=== PATIENT | female | born 1960 | race African-American/Black ===

== ENCOUNTER → 2017-05-17 | Outpatient (CLI) | payer OTHER ==
[~2017-05-17] MED LIST: ANT25 PO; TRAZ50TA35 PO; VALA500T60 PO
--- NOTE | 2017-05-17 18:15 | DIAGNOSTIC IMAGING REPORT ---
LEFT LOWER EXTREMITY VENOUS DOPPLER HISTORY: PAIN OF LEFT LOWER LEG COMPARISON STUDY: None. FINDINGS: There is normal compressibility, flow, and augmentation within the left lower extremity deep venous system. IMPRESSION: No DVT within the left lower extremity. Electronically signed by: Kevon Valenzuela M.D. 05/17/2017 6:14 PM Dictated Date/Time: 05/17/2017 6:14 PM
== END | disposition home or self-care (01) ==
LOC: C.ULTR 16:34
PROVIDERS: ATTEND Family Medicine
DX: M79.662 Pain in left lower leg (principal)

== ENCOUNTER 2024-02-10 15:44 | Observation (INO) ==
--- NOTE | 2024-02-10 15:51 | ED Triage Note ---
Date of Service February 10, 2024 Provider in Triage Author: Susan Castellanos History of Present Illness This patient was briefly evaluated while in triage. An abbreviated physical exam was performed. This patient is a 63-year-old Female who presents to the ED for evaluation "weakness in right head/eye" tingling traveled down right arm started around 1200 today had a episode of similar symptoms 7-10 days ago-resolved after a few minutes sent by doctors office for possible stroke Physical Exam GENERAL: NAD, ambulatory into triage independently CARDIOVASCULAR: RRR RESPIRATORY: CTA NEURO: speech clear, no facial droop, CV VII intact, no drift, moving all extremities Initial orders for labs and / or imaging were placed and patient was placed in the waiting area until a bed is available. Please see further documentation for the full ED course.
[2024-02-10 16:34] LABS: Basophils # (auto) 0.06 K/uL (0.00-0.20); Basophils % (auto) 0.7 %; Eosinophils # (auto) 0.28 K/uL (0.00-0.50); Eosinophils % (auto) 3.1 %; Hematocrit (blood only) 37.3 % (37.0-47.0); Hemoglobin 12.4 g/dl (12.0-16.0); Immature Granulocytes # (auto) 0.02 K/uL (0.01-0.20); Immature Granulocytes % (auto) 0.2 %; Lymphocytes # (auto) 2.64 K/uL (1.20-3.40); Lymphocytes % (auto) 29.6 %; Mean Corpuscular Hemoglobin 29.8 pg (25.0-34.0); Mean Corpuscular Hgb Conc 33.2 g/dL (32.0-36.0); Mean Corpuscular Volume 89.7 fL (80.0-100.0); Mean Platelet Volume 11.9 fL (9.4-12.4); Monocytes # (auto) 0.76 K/uL (0.11-0.59); Monocytes % (auto) 8.5 %; Neutrophils # (auto) 5.15 K/uL (1.40-6.50); Neutrophils % (auto) 57.9 %; Platelet Count 328 K/uL (130-400); RDW Coefficient of Variation 13.6 % (11.5-14.5); RDW Standard Deviation 44.6 fL (36.4-46.3); Red Blood Count 4.16 M/uL (4.20-5.40); White Blood Count 8.91 K/ul (4.8-10.8)
[2024-02-10] MEDS: OPTIRAY 320 125ml IV ONE (16:37)
[2024-02-10 16:40] LABS: iSTAT Hemoglobin 13.3 g/dl (12.0-16.0); iSTAT Ionized Calcium 1.25 mmol/l (1.12-1.32)
[2024-02-10 16:50] LABS: Albumin Globulin Ratio 1.5 (0.9-2); Albumin Level 4.3 gm/dl (3.4-5.0); BUN Creatinine Ratio 21.9 (10-20); Bilirubin,Total 0.4 mg/dl (0.2-1.0); Calcium 9.2 mg/dl (8.6-10.3); Creatinine Clr Calc Pharmacy 68.9 ml/min; Est GFR (African American) 73.5 ml/min; Est GFR (Non-African American) 63.4 ml/min; Globulin 2.8 gm/dl (2.5-4.0); Magnesium 1.8 mg/dl (1.7-2.4); Total Protein 7.1 gm/dl (6.0-8.3)
[2024-02-10 16:57] LABS: Troponin I High Sensitivity 2.4 pg/ml (0-14)
[2024-02-10 16:58] LABS: INR 0.9 (0.9-1.1); Partial Thromboplastin Ratio 0.9; Partial Thromboplastin Time 24 Seconds (21-31); Prothrombin Time 9.8 Seconds (9.0-12.0)
[2024-02-10 17:06] LABS: Thyroid Stimulating Hormone 0.636 uIu/ml (0.300-4.500)
--- NOTE | 2024-02-10 17:24 | CT Scan Report ---
HEAD CT NONCONTRAST CT DOSE: HISTORY: neuro deficit, acute stroke suspected TECHNIQUE: Multiaxial CT images of the head were performed without the use of intravenous contrast. A utomated exposure control was utilized for this study. A dose lowering technique was utilized adheri ng to the principles of ALARA. Comparison: Head CT 06/18/2022. Findings: The paranasal sinuses and mastoid air cells are clear. The calvarium and skull base are int act. The ventricles and sulci are within normal limits. There is no mass, hematoma, midline shift, or acute infarct. Impression: No acute intracranial abnormality. ACT 112: Negative or not required by law. Electronically signed by: Kevon Valenzuela M.D. 02/10/2024 5:23 PM
--- NOTE | 2024-02-10 17:26 | CT Scan Report ---
NECK CTA HISTORY: neuro deficit, acute stroke suspected TECHNIQUE: Multiaxial CT images of the neck were performed following the intravenous administration o f contrast to evaluate the major cervical vessels. 3D/MIP images were also obtained. Sagittal and cor onal reformats were reviewed. All measurements were calculated based on NASCET criteria. A dose low ering technique was utilized adhering to the principles of ALARA. COMPARISON STUDY: CTA neck 06/18/2022. FINDINGS: The aortic arch and proximal great vessels are widely patent. There is no significant sten osis, occlusion, or dissection identified within the bilateral common carotid, internal carotid, or v ertebral arteries. IMPRESSION: No significant stenosis, occlusion, or dissection identified within the carotid or vertebral arteries . ACT 112: Negative or not required by law. Electronically signed by: Kevon Valenzuela M.D. 02/10/2024 5:25 PM
--- NOTE | 2024-02-10 17:27 | CT Scan Report ---
CT angio head w con CLINICAL HISTORY: neuro deficit, acute stroke suspected TECHNIQUE: Contiguous axial CT images of the head were acquired from the base of the skull to the bronson adeline without intravenous contrast administration. CT angiography of the head and neck was performed f ollowing intravenous administration of iodinated contrast. Coronal and sagittal MIPS were obtained fr om the axial data set and were submitted for review. Automated dose lowering techniques and/or adjus tment according to patient size were utilized for this examination. All measurements were calculated based on NASCET criteria. Comparison: None available at the time of this dictation. FINDINGS: CTA Head: The anterior and posterior cerebral circulations are patent. No hemodynamically significan t stenosis, aneurysm, dissection, or arteriovenous malformation is shown. IMPRESSION: No occlusion, hemodynamically significant stenosis, aneurysm, dissection, or arteriovenous malformati on in the major intracranial arteries. Assessment of stenosis of the internal carotid arteries is based on NASCET criteria. ACT 112: Negative or not required by law. Electronically signed by: James Horne M.D. 02/10/2024 5:26 PM
--- NOTE | 2024-02-10 18:29 | Emergency Department Note ---
Impression & Plan Stroke-like symptoms, Numbness and tingling of right face, Numbness and tingling of right arm ED Provider Note HISTORY OF PRESENT ILLNESS: Patient is a 63-year-old female presenting with right sided numbness and tingling. Patient reports that around 1230 today she developed a "weakness in my right upper forehead." She states that she then had a [id number] numbness and tingling sensation down the right side of her face, and then down her right arm into her hand. She called her primary care provider's office, who recommended she present to the emergency department. Patient denies any recent head injury or chiropractic manipulation of her neck. Denies any changes in her vision. She reports "I just felt like my forehead was very weak and I had difficulties keeping my eye open." Denies any slurred speech. She states that she is still having symptoms on my assessment in 1820, but reports that they have significantly improved. She denies any anticoagulation or antiplatelet use. Denies any chest pain or shortness of breath. Denies any recent fevers. Denies any headache. ROS: as above PHYSICAL EXAM: Constitutional: Patient appears in no acute distress. HENT: Head: Normocephalic and atraumatic. Eyes: EOMI, PERRL Mouth/Throat: Mucous membranes moist. Neck: Trachea midline. Neck supple. Cardiovascular: RRR, No murmurs, rubs or gallops. Intact distal pulses. Pulmonary/Chest: No respiratory distress. Breath sounds clear and equal bilaterally. No wheezes or rales. Abdominal: Abdomen soft, no tenderness, rebound or guarding. Musculoskeletal: No edema, tenderness or deformity noted. Skin: Warm and dry. No rash, erythema, pallor or cyanosis Psychiatric: Appropriate mood and affect for situation. Neurological: Alert and keenly responsive. Facies symmetric. Able to raise eyebrows, close eyes, smile, puff mouth, stick out tongue, move tongue left and right and raise palate symmetrically. Able to shrug shoulders. PERRLA. SILT to forehead below eye and at jawline. Can hear soft noise bilaterally. Strength 5/5 in bilateral upper and lower extremities. SILT throughout bilateral upper and lower extremities. MDM: - Vitals signs showed hypertension - History obtained via patient. History as above. - Chronic conditions affecting care: Prediabetes; angioedema; HLD - Differential diagnoses include, but are not limited to: TIA; CVA; intracranial hemorrhage; electrolyte abnormality; ACS; dysrhythmia - Order placed for continuous cardiac monitoring. At this time, monitor showed rate of 68 bpm with normal sinus rhythm, per my interpretation. - External medical records reviewed. Wellness visit note on 12/26/2023 was reviewed. Patient was seen in the clinic for health maintenance examination. - EKG interpreted by myself showed normal sinus rhythm. Rate 69 bpm. QT 392. No acute ischemic changes. - Laboratory workup interpreted by myself showed normal WBC; normal PT/INR; stable electrolytes; normal troponin; normal TSH - UA negative for infection - CT head wo contrast negative for acute pathology - CTA head/neck negative for acute pathology - Unclear etiology for patient's symptoms at this time, as she is denying any headache to make ocular migraine appendageal etiology for her symptoms. However, she is still complaining of some subjective numbness symptoms to her face and arm, so will admit for further strokelike symptoms workup. - Discussion was had with case coordinator about patient's case and need for admission - Hospitalist consulted for admission - Patient admitted to [facility] for further evaluation and management. ASSESSMENT AND PLAN: Diagnosis: Strokelike symptoms; right facial numbness; right arm numbness Plan: admit Past Med/Surg History Problem List (Updated 02/10/24 @ 20:04 by Susan Castellanos MD) Numbness and tingling of right arm (Acute) Numbness and tingling of right face (Acute) Stroke-like symptoms (Acute) Internal derangement of knee Stress incontinence Hyperlipidemia Renal insufficiency Angioedema Dermatitis Carpal tunnel syndrome of right wrist Medial meniscus, posterior horn derangement Urinary urgency Recurrent urinary tract infection Bakers cyst Knee pain Greater trochanteric pain syndrome Chronic venous insufficiency Lumbar radiculopathy, acute Metabolic syndrome Iliotibial band syndrome affecting left lower leg Dietary counseling and surveillance Abnormal weight gain Obesity (Chronic) Ovidio's disease (Chronic) Prediabetes (Chronic) Lipodermatosclerosis Hypothyroid (Chronic) Herpes genitalia (Chronic) Medical History Encounter for screening for malignant neoplasm of skin History of vaginal delivery Panniculitis Rash and nonspecific skin eruption Surgical History No pertinent past surgical history Family History Mother Coronary heart disease, Onset Age: 56 Myocardial infarction Hypothyroidism ESCALONA (nonalcoholic steatohepatitis) Father Macular degeneration Hypothyroidism Circulation disorder of lower extremity Brother Depression Diabetes Sister Depression Hypothyroidism Daughter No problems noted. 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 How many Children do You have: 1 Feels Safe at Home: Yes Childhood Exposure to Second-Hand Smoke: No Diet: regular Diet Comment: vegetarian sometimes trying to get back to it caffeine: Yes during the past year weight has: remained stable Dental Care, Regularly: Yes Physical Activity Frequency: Daily Seatbelt Use: always Sunscreen Use: Yes Assistive Devices: Glasses Allergies Allergies Allergy/AdvReac Type Severity Reaction Status Date / Time sulfamethoxazole Allergy Verified 01/23/24 14:33 [From Bactrim] trimethoprim [From Bactrim] Allergy Verified 01/23/24 14:33 Home Meds Home Medications Medication Instructions Recorded Confirmed clobetasol 0.05 % topical cream 0 appln topical BID PRN Unknown 03/11/19 02/10/24 pentoxifylline 400 mg 0 mg PO TID PRN Unknown 03/06/21 02/10/24 tablet,extended release meclizine 25 mg tablet 0 mg PO TID PRN dizziness 02/10/24 02/10/24 meloxicam 7.5 mg tablet 0 mg PO DAILY PRN pain 02/10/24 02/10/24 metformin 500 mg tablet,extended 0 mg PO DAILY 02/10/24 02/10/24 release 24 hr ondansetron 4 mg disintegrating 0 mg PO Q8H PRN nausea and vomiting 02/10/24 02/10/24 tablet scopolamine base 1 mg over 3 days 0 patch transdermal Q3D PRN nausea 02/10/24 02/10/24 transdermal patch and vomiting Previous Rx's Medication Instructions Recorded valacyclovir 500 mg tablet 500 mg PO DAILY PRN herpes #90 tabs 09/24/23 levothyroxine 112 mcg tablet 112 mcg PO DAILY 90 days #90 tabs 11/28/23 pravastatin 10 mg tablet 10 mg PO DAILY #90 tabs 11/28/23 Results & Data (ED) Vital Signs Vital Signs - 24 hr 02/10/24 15:48 02/10/24 17:44 02/10/24 18:42 Temperature 36.6 C Temperature Source Temporal Artery Scan Pulse Rate 77 73 Pulse Rate [Finger] 68 Respiratory Rate 18 16 Respiratory Effort / Characteristics Non-Labored Spontaneous Respiratory Depth Normal Respiratory Pattern Regular Blood Pressure 143/71 H Blood Pressure [Left Arm] 125/65 Blood Pressure Mean 95 Blood Pressure Mean [Left Arm] 85 Pulse Oximetry 96 100 Oxygen Delivery Method Room Air Room Air Sepsis Recent Fever Within 48 Hours No Sepsis New/Unexplained Change in Mental Status N/A Sepsis Action Taken by Nursing No Action Required Laboratory Data 02/10/24 16:16 02/10/24 16:16 Lab Results 02/10/24 02/10/24 02/10/24 Range/Units 16:16 16:23 18:45 WBC 8.91 (4.8-10.8) K/ul RBC 4.16 L (4.20-5.40) M/uL Hgb 12.4 (12.0-16.0) g/dl POC Hgb 13.3 (12.0-16.0) g/dl Hct 37.3 (37.0-47.0) % POC Hct 39 (37-47) % MCV 89.7 (80.0-100.0) fL MCH 29.8 (25.0-34.0) pg MCHC 33.2 (32.0-36.0) g/dL RDW Std Deviation 44.6 (36.4-46.3) fL RDW Coeff of Zohaib 13.6 (11.5-14.5) % Plt Count 328 (130-400) K/uL MPV 11.9 (9.4-12.4) fL Immature Gran % (Auto) 0.2 % Neut % (Auto) 57.9 % Lymph % (Auto) 29.6 % Ballard % (Auto) 8.5 % Eos % (Auto) 3.1 % Baso % (Auto) 0.7 % Neut # (Auto) 5.15 (1.40-6.50) K/uL Lymph # (Auto) 2.64 (1.20-3.40) K/uL Ballard # (Auto) 0.76 H (0.11-0.59) K/uL Eos # (Auto) 0.28 (0.00-0.50) K/uL Baso # (Auto) 0.06 (0.00-0.20) K/uL Immature Gran # (Auto) 0.02 (0.01-0.20) K/uL PT 9.8 (9.0-12.0) Seconds INR 0.9 (0.9-1.1) APTT 24 (21-31) Seconds PTT Ratio 0.9 POC Sodium 140 (135-144) mmol/L Sodium 140 (136-145) mmol/L POC Potassium 4.0 (3.3-5.0) mmol/L Potassium 4.0 (3.5-5.1) mmol/L POC Chloride 107 (101-112) mmol/L Chloride 106 (98-107) mmol/L Carbon Dioxide 26 (21-32) mmol/L POC Total CO2 25 (24-31) mmol/L Anion Gap 8 (3-11) POC Anion Gap 14.0 L (16-25) mmol/L POC BUN 21 H (7-18) mg/dl BUN 21 (6-23) mg/dl Creatinine 0.96 (0.6-1.2) mg/dl POC Creatinine 1.0 (0.6-1.3) mg/dl Est Cr Clr Drug Dosing 68.9 ml/min Est GFR ( Amer) 73.5 ml/min Est GFR (Non-Af Amer) 63.4 ml/min BUN/Creatinine Ratio 21.9 H (10-20) Glucose 101 H (70-99(Fasting)) mg/dl POC Glucose (other) 105 H (70-99) mg/dl Calcium 9.2 (8.6-10.3) mg/dl POC Ioniz Calcium Noé 1.25 (1.12-1.32) mmol/l Magnesium 1.8 (1.7-2.4) mg/dl Total Bilirubin 0.4 (0.2-1.0) mg/dl AST 15 (13-39) U/L ALT 16 (7-52) U/L Alkaline Phosphatase 82 (34-104) U/L Troponin I High Sens 2.4 (0-14) pg/ml Total Protein 7.1 (6.0-8.3) gm/dl Albumin 4.3 (3.4-5.0) gm/dl Globulin 2.8 (2.5-4.0) gm/dl Albumin/Globulin Ratio 1.5 (0.9-2) TSH 0.636 (0.300-4.500) uIu/ml Urine Color Yellow Urine Appearance Clear (Clear) Urine pH 5.5 (4.5-7.5) Ur Specific Harman > 1.045 H (1.000-1.030) Urine Protein Negative (Negative) Urine Glucose (UA) Negative (Negative) Urine Ketones Negative (Negative) Urine Blood Negative (Negative) Urine Nitrite Negative (Negative) Urine Bilirubin Negative (Negative) Urine Urobilinogen Negative (Negative) Ur Leukocyte Esterase Negative (Negative) Administered Medications Discontinued Medications Ioversol (Optiray 320 125ml) 120 ml IV ONCE ONE Stop: 02/10/24 16:38 Last Admin: 02/10/24 16:37 Dose: 120 ml Documented By: JOSE Imaging Data Radiologist's Impression: Head CT 02/10/24 15:[address] DOSE: HISTORY: neuro deficit, acute stroke suspected TECHNIQUE: Multiaxial CT images of the head were performed without the use of intravenous contrast. Automated exposure control was utilized for this study. A dose lowering technique was utilized adhering to the principles of ALARA. Comparison: Head CT 06/18/2022. Findings: The paranasal sinuses and mastoid air cells are clear. The calvarium and skull base are intact. The ventricles and sulci are within normal limits. There is no mass, hematoma, midline shift, or acute infarct. Impression: No acute intracranial abnormality. ACT 112: Negative or not required by law. Electronically signed by: Kevon Valenzuela M.D. 02/10/2024 5:23 PM Head CTA 02/10/24 15:51 CT angio head w con CLINICAL HISTORY: neuro deficit, acute stroke suspected TECHNIQUE: Contiguous axial CT images of the head were acquired from the base of the skull to the vertex without intravenous contrast administration. CT angiography of the head and neck was performed following intravenous administration of iodinated contrast. Coronal and sagittal MIPS were obtained from the axial data set and were submitted for review. Automated dose lowering techniques and/or adjustment according to patient size were utilized for this examination. All measurements were calculated based on NASCET criteria. Comparison: None available at the time of this dictation. FINDINGS: CTA Head: The anterior and posterior cerebral circulations are patent. No hemodynamically significant stenosis, aneurysm, dissection, or arteriovenous malformation is shown. IMPRESSION: No occlusion, hemodynamically significant stenosis, aneurysm, dissection, or arteriovenous malformation in the major intracranial arteries. Assessment of stenosis of the internal carotid arteries is based on NASCET criteria. ACT 112: Negative or not required by law. Electronically signed by: James Horne M.D. 02/10/2024 5:26 PM Neck CTA 02/10/24 15:51 NECK CTA HISTORY: neuro deficit, acute stroke suspected TECHNIQUE: Multiaxial CT images of the neck were performed following the intravenous administration of contrast to evaluate the major cervical vessels. 3D/MIP images were also obtained. Sagittal and coronal reformats were reviewed. All measurements were calculated based on NASCET criteria. A dose lowering technique was utilized adhering to the principles of ALARA. COMPARISON STUDY: CTA neck 06/18/2022. FINDINGS: The aortic arch and proximal great vessels are widely patent. There is no significant stenosis, occlusion, or dissection identified within the bilateral common carotid, internal carotid, or vertebral arteries. IMPRESSION: No significant stenosis, occlusion, or dissection identified within the carotid or vertebral arteries. ACT 112: Negative or not required by law. Electronically signed by: Kevon Valenzuela M.D. 02/10/2024 5:25 PM Discharge Plan Visit Data Chief Complaint: Neuro Symptoms/Deficit Stated Complaint: TIA SYMPTOMS, NUMB, HEADACHE ED Provider: Susan Castellanos Discharge Problem: Stroke-like symptoms, Numbness and tingling of right face, Numbness and tingling of right arm Forms Stand Alone Forms: [employer]itive Prescriptions Prescriptions: No Action valacyclovir 500 mg tablet 500 mg PO DAILY PRN (Reason: herpes) Qty: 90 1RF clobetasol 0.05 % cream 0 appln topical BID PRN (Reason: Unknown) Rx Instructions: Unable to verify w/ patient/pharmacy at this date/time. Original Directions: 1 application twice daily PRN pentoxifylline 400 mg tablet extended release 0 mg PO TID PRN (Reason: Unknown) Rx Instructions: Unable to verify w/ patient/pharmacy at this date/time. Original Directions: 400mg by mouth TID pravastatin 10 mg tablet 10 mg PO DAILY Qty: 90 1RF levothyroxine 112 mcg tablet 112 mcg PO DAILY 90 Days Qty: 90 1RF Rx Instructions: Take 1st thing in AM on empty stomach with water 30 min prior to any other oral intake. meloxicam 7.5 mg tablet 0 mg PO DAILY PRN (Reason: pain) Rx Instructions: Unable to verify w/ patient/pharmacy at this date/time. Original Directions:7.5mg by mouth daily PRN meclizine 25 mg tablet 0 mg PO TID PRN (Reason: dizziness) Rx Instructions: Unable to verify w/ patient/pharmacy at this date/time. Original Directions:25mg by mouth TID PRN scopolamine base 1 mg over 3 days patch 3 day 0 patch transdermal Q3D PRN (Reason: nausea and vomiting) Rx Instructions: Unable to verify w/ patient/pharmacy at this date/time. Original Directions: 1 patch transdermal q3D PRN ondansetron 4 mg tablet,disintegrating 0 mg PO Q8H PRN (Reason: nausea and vomiting) Rx Instructions: Unable to verify w/ patient/pharmacy at this date/time. Original Directions: 4mg by mouth q8h PRN metformin 500 mg tablet extended release 24 hr 0 mg PO DAILY Rx Instructions: Unable to verify w/ patient/pharmacy at this date/time. Original Directions: 500mg by mouth daily Referrals Referrals: Anastasia Ye MD [Primary Care Provider] -
[2024-02-10 18:56] LABS: Appearance Urine Clear (Clear); Bilirubin Urine Negative (Negative); Blood Urine Negative (Negative); Color Urine Yellow; Glucose Urine UA Negative (Negative); Ketones Urine Negative (Negative); Leukocyte Esterase Urine Negative (Negative); Nitrite Urine Negative (Negative); Protein Urine Negative (Negative); Specific Gravity Urine > 1.045 (1.000-1.030); Urobilinogen Urine Negative (Negative); pH Urine 5.5 (4.5-7.5)
--- NOTE | 2024-02-10 20:07 | History & Physical Report ---
Date of Service February 10, 2024 Assessment & Plan (1) Stroke-like symptoms: Plan: Acute onset of right-sided facial weakness and right arm tingling around 1200 on 02/09 No facial droop or slurred speech; patient reports difficulty assessing unilateral deficits due to a recent right knee injury Note: She is currently completing a steroid taper for her knee which she started on 01/21 Head/neck imaging on arrival without acute findings Brain MRI ordered, pending Echocardiogram with bubble study ordered for the morning of 02/10 Patient passed dysphagia screen in the ED, okay to eat Aspirin 324 mg p.o. given in the ED DDx at this time includes TIA, CVA, ocular migraine, unilateral sinus pressure/infection, and barotrauma (among other etiologies) Aspirin 81 mg p.o. daily A.m. CBC, BMP, fasting lipid panel, A1c (2) Diabetes: Plan: Last A1c 6.1% on 11/28/2023; prediabetic Glucose 101 on arrival Hold metformin Will defer insulin at this time; diet controlled BSG ACHS Follow a.m. A1c (3) Hypothyroid: Plan: Continue Synthroid Plan Disposition: Obs - Admit to PCU telemetry Full code T2DM diet VTE PPx: SCDs; hold chemical DVT PPx until brain MRI comes back History of Present Illness Chief Complaint: Neuro symptoms/deficits Primary Care Provider: [facility]astasia Ye [facility] 63-year-[facility] female with PMH of hypothyroidism, metabolic syndrome, Ovidio's, stress incontinence, and HLD. She presented on 02/09 for acute onset of right upper quadrant facial pressure and weakness. She notes that the pressure feels like a "brain freeze" and it is around her right eye, cheek, and forehead. No blurry vision, photophobia, or loss of vision. She thinks it could be related to her sinuses. She did go for a long hike on Friday, and while there was not significant elevation changes, she went for a hike the preceding Friday with higher elevation changes. She had 1 episode of similar symptoms 7 to 10 days ago that resolved after 5 minutes. Patient took all her regular morning medications today except for her metformin. She had a brief stomach illness (abdominal cramping, and N/V/D) last Friday and thought it could be a GI reaction to the metformin, which she has stopped taking for a couple days. Additionally, she is currently completing a oral prednisone taper for her right knee, which she has been on for the past 2 to 3 weeks. She had a knee injury during an exercise class II months ago, and has had intermittent weakness in her right knee ever since. Today, she denies any slurred speech, facial droop, or unilateral deficits (however she reports it is difficult to tell with her right knee injury). She does endorse some numbness and tingling in her right arm. While she does have a history of vertigo, she denies any lightheadedness or dizziness similar to past episodes. She also says she has a history of migraines 2-3 times per year, but she does not feel like it is similar to that; no aura or photophobia. Patient denies smoking, tobacco use, recent alcohol use. Patient reports she has a medication allergy to Bactrim; she reports she has taken aspirin in the past without any allergy problems. She reports she is still feeling eye pressure and weakness at time of admission and that her symptoms have not fully resolved. Vital stable at time admission. ED course: ROS: Patient endorses swelling/weakness around the right eyelid, unilateral sinus pressure, numbness and tingling down the right arm, and weakness in the right knee. Patient denies fever, chills, sweating, dizziness, lightheadedness, blurry vision, loss of vision, photophobia, changes in hearing, tinnitus, ear pain, facial droop, slurred speech, word finding difficulty, confusion, tick bites, rashes, chest pain, chest palpitations, pleuritic CP, SOB, cough, abdominal pain (resolved), N/V/D (resolved), or changes in urinary bowel habits. Allergies Allergy/AdvReac Type Severity Reaction Status Date / Time sulfamethoxazole Allergy Verified 01/23/24 14:33 [From Bactrim] trimethoprim [From Bactrim] Allergy Verified 01/23/24 14:33 Home Medications Medication Instructions Recorded Confirmed Type clobetasol 0.05 % topical cream 0 appln topical BID PRN Unknown 03/11/19 02/10/24 History pentoxifylline 400 mg 0 mg PO TID PRN Unknown 03/06/21 02/10/24 History tablet,extended release valacyclovir 500 mg tablet 500 mg PO DAILY PRN herpes #90 tabs 09/24/23 02/10/24 Rx levothyroxine 112 mcg tablet 112 mcg PO DAILY 90 days #90 tabs 11/28/23 02/10/24 Rx pravastatin 10 mg tablet 10 mg PO DAILY #90 tabs 11/28/23 02/10/24 Rx meclizine 25 mg tablet 0 mg PO TID PRN dizziness 02/10/24 02/10/24 History meloxicam 7.5 mg tablet 0 mg PO DAILY PRN pain 02/10/24 02/10/24 History metformin 500 mg tablet,extended 0 mg PO DAILY 02/10/24 02/10/24 History release 24 hr ondansetron 4 mg disintegrating 0 mg PO Q8H PRN nausea and vomiting 02/10/24 02/10/24 History tablet scopolamine base 1 mg over 3 days 0 patch transdermal Q3D PRN nausea 02/10/24 02/10/24 History transdermal patch and vomiting Past Med/Surg History Problem List (Updated 02/11/24 @ 09:35 by Long Brady MD) Ill-defined condition Diabetes Numbness and tingling of right arm (Acute) Numbness and tingling of right face (Acute) Stroke-like symptoms (Acute) Internal derangement of knee Stress incontinence Hyperlipidemia Renal insufficiency Angioedema Dermatitis Carpal tunnel syndrome of right wrist Medial meniscus, posterior horn derangement Urinary urgency Recurrent urinary tract infection Bakers cyst Knee pain Greater trochanteric pain syndrome Chronic venous insufficiency Lumbar radiculopathy, acute Metabolic syndrome Iliotibial band syndrome affecting left lower leg Dietary counseling and surveillance Abnormal weight gain Obesity (Chronic) Ovidio's disease (Chronic) Prediabetes (Chronic) Lipodermatosclerosis Hypothyroid (Chronic) Herpes genitalia (Chronic) Medical History Encounter for screening for malignant neoplasm of skin History of vaginal delivery Panniculitis Rash and nonspecific skin eruption Surgical History No pertinent past surgical history Family History Mother Coronary heart disease, Onset Age: 56 Myocardial infarction Hypothyroidism ESCALONA (nonalcoholic steatohepatitis) Father Macular degeneration Hypothyroidism Circulation disorder of lower extremity Brother Depression Diabetes Sister Depression Hypothyroidism Daughter No problems noted. 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 many Children do You have: 1 Feels Safe at Home: Yes Childhood Exposure to Second-Hand Smoke: No Diet: regular Diet Comment: vegetarian sometimes trying to get back to it caffeine: Yes during the past year weight has: remained stable Dental Care, Regularly: Yes Physical Activity Frequency: Daily Seatbelt Use: always Sunscreen Use: Yes Assistive Devices: None Review of Systems Review of Systems: See HPI above Physical Exam Physical Exam: General: no acute distress; pleasant affect; non-toxic appearing; cooperative; SpO2 1% on RA HEENT: normocephalic, atraumatic; no scleral icterus; PERRLA w/ EOMs intact; vision and hearing grossly intact; patient reports diminished sensation around the right eye and cheek when compared to the left via light touch; no unilateral sensation deficits in the forehead Neck: supple; no lymphadenopathy; trachea midline; patient demonstrates ability to shrug shoulders against resistance and rotate neck bilaterally without deficits Skin: warm, dry without signs of tenting; no cyanosis; no rashes, bruising, lesions, or erythema noted CV: chest wall NTP; RRR; S1/S2 normal; no murmurs/rubs/gallops; pulses intact and symmetric at radial, DP, and PT Lungs: no acute respiratory distress; symmetrical chest wall expansion; clear breath sounds across all lung wei w/o adventitious sounds; no wheezing ABD: Soft, NTP; BS present; no rebound/guarding; no distention MSK: no tics or fasciculations; no edema noted in the LEs b/l, nonerythematous; patient demonstrates ability to wiggle toes and with legs in bed supine with equal strength; 5/5 maintenance apprentice strength bilaterally Neuro: A&Ox3; normal mood and affect; fluent speech; no facial droop, no slurred speech; no focal deficits; sensation grossly intact in the upper extremities and lower extremities bilaterally; negative pronator drift Results & Data Results & Data Vital Signs (Past 12 Hours) Vital Signs Temp Pulse Pulse Resp BP BP Pulse Ox 02/10/24 18:42 68 16 125/65 100 02/10/24 17:44 73 02/10/24 15:48 36.6 C 77 18 143/71 H 96 O2 Del Method 02/10/24 18:42 Room Air 02/10/24 17:44 02/10/24 15:48 Room Air Laboratory Results Abnormal lab results 02/10/24 02/10/24 02/10/24 Range/Units 16:16 16:23 18:45 RBC 4.16 L (4.20-5.40) M/uL [facility] # (Auto) 0.76 H (0.11-0.59) K/uL POC Anion Gap 14.0 L (16-25) mmol/L POC BUN 21 H (7-18) mg/dl BUN/Creatinine Ratio 21.9 H (10-20) Glucose 101 H (70-99(Fasting)) mg/dl POC Glucose (other) 105 H (70-99) mg/dl Ur Specific [place] > 1.045 H (1.000-1.030) Diagnostic Findings Head CT 02/10/24 15:[address] DOSE: HISTORY: neuro deficit, acute stroke suspected TECHNIQUE: Multiaxial CT images of the head were performed without the use of intravenous contrast. Automated exposure control was utilized for this study. A dose lowering technique was utilized adhering to the principles of ALARA. Comparison: Head CT 06/18/2022. Findings: The paranasal sinuses and mastoid air cells are clear. The calvarium and skull base are intact. The ventricles and sulci are within normal limits. There is no mass, hematoma, midline shift, or acute infarct. Impression: No acute intracranial abnormality. ACT 112: Negative or not required by law. Electronically signed by: Kevon Valenzuela M.D. 02/10/2024 5:23 PM Head CTA 02/10/24 15:51 CT angio head w con CLINICAL HISTORY: neuro deficit, acute stroke suspected TECHNIQUE: Contiguous axial CT images of the head were acquired from the base of the skull to the vertex without intravenous contrast administration. CT angiography of the head and neck was performed following intravenous administration of iodinated contrast. Coronal and sagittal MIPS were obtained from the axial data set and were submitted for review. Automated dose lowering techniques and/or adjustment according to patient size were utilized for this examination. All measurements were calculated based on NASCET criteria. Comparison: None available at the time of this dictation. FINDINGS: CTA Head: The anterior and posterior cerebral circulations are patent. No hemodynamically significant stenosis, aneurysm, dissection, or arteriovenous malformation is shown. IMPRESSION: No occlusion, hemodynamically significant stenosis, aneurysm, dissection, or arteriovenous malformation in the major intracranial arteries. Assessment of stenosis of the internal carotid arteries is based on NASCET criteria. ACT 112: Negative or not required by law. Electronically signed by: James Horne M.D. 02/10/2024 5:26 PM Neck CTA 02/10/24 15:51 NECK CTA HISTORY: neuro deficit, acute stroke suspected TECHNIQUE: Multiaxial CT images of the neck were performed following the intravenous administration of contrast to evaluate the major cervical vessels. 3D/MIP images were also obtained. Sagittal and coronal reformats were reviewed. All measurements were calculated based on NASCET criteria. A dose lowering technique was utilized adhering to the principles of ALARA. COMPARISON STUDY: CTA neck 06/18/2022. FINDINGS: The aortic arch and proximal great vessels are widely patent. There is no significant stenosis, occlusion, or dissection identified within the bilateral common carotid, internal carotid, or vertebral arteries. IMPRESSION: No significant stenosis, occlusion, or dissection identified within the carotid or vertebral arteries. ACT 112: Negative or not required by law. Electronically signed by: Kevon Valenzuela M.D. 02/10/2024 5:25 PM ECG Additional Comments: ECG revealed normal sinus rhythm at 69 bpm; QTc 420 Code Status & VTE Plan Code Status Full code VTE Prophylaxis Plan VTE Prophylaxis will be ordered: Yes Supervising Physician Co-Signing Physician Notes Attending addendum: I have physically seen this patient, have supervised the NATHALIE's activities, and agree with the H&P unless as otherwise noted. Assessment and Plan: Strokelike symptoms- Patient notes acute onset of right-sided facial tingling and right arm tingling around noon on 02/09 No issues with facial droop, slurred speech or swallowing CT scan head without contrast negative CTA head and neck negative The patient will be admitted to telemetry for serial cardiac enzymes, serial EKG's, cardiac rhythm monitoring and a 2-D echocardiogram with Dopplers. Aspirin 324 mg given in the ED, and will continue his 81 mg daily CBC with differential, BMP, hemoglobin A1c and FLP in the a.m. Consult neurology Diabetes mellitus- Glucose 101 admission Holding metformin Placed on Accu-Cheks with NovoLog coverage Ovidio's thyroiditis/hypothyroidism- Continue levothyroxine 112 mcg daily Hyperlipidemia- On pravastatin 10 mg p.o. daily Check fasting lipid panel PG Care Time/CCT Total # of Minutes Spent Total Time Spent with Patient: Total time spent is greater than 50% in coordination of care (as documented) at patient's floor/unit and/or counseling patient: Coding [place] [address] INT INP/OBS CARE 3/75MIN Patient Type Established Medical Decision Making High Complexity Diagnoses Stroke-like symptoms R29.90 Diabetes E11.9 Acquired hypothyroidism E03.9 Hypothyroidism type: acquired (3) Hypothyroid Hypothyroidism type: acquired Qualified Code(s): E03.9 - Hypothyroidism, unspecified
[2024-02-10] MEDS: ASPIRIN CHEW 324 MG PO STA (21:19)
[2024-02-10] MEDS ORDERED: ACETAMINOPHEN 325 MG TAB PO PRN (22:31)
[2024-02-10] MEDS ORDERED: DEXTROSE 50% 50 ML SYRINGE IV PRN (22:31)
[2024-02-10] MEDS ORDERED: GLUCOSE 40% GEL 15 GM TUBE PO PRN (22:31)
[2024-02-10] MEDS ORDERED: CLOBETASOL PROPIONATE 0.05% CREAM 15 GM TUBE TOP PRN (22:31)
[2024-02-10] MEDS ORDERED: GLUCAGON FOR INJ 1 MG VIAL SQ PRN (22:31)
[2024-02-10] MEDS ORDERED: CARBOHYDRATES FOR HYPOGLYCEMIA PO PRN (22:31)
[2024-02-10] MEDS ORDERED: ONDANSETRON INJ 2 MG/ML 2 ML VIAL IV PRN (22:31)
[2024-02-10] MEDS ORDERED: MECLIZINE HCL 25 MG TAB PO PRN (22:31)
[2024-02-10] MEDS ORDERED: GLUCOSE 10 TAB/TUBE PO PRN (22:31)
--- NOTE | 2024-02-11 01:42 | Magnetic Resonance Report ---
Exam(s): MRI HEAD Without Contrast EXAM: MR Head Without Intravenous Contrast CLINICAL HISTORY: Reason for exam: Stroke-like symptoms. TECHNIQUE: Magnetic resonance images of the head/brain without intravenous contrast in multiple planes. COMPARISON: No relevant prior studies available. FINDINGS: Brain: Minimal nonspecific white matter changes. No mass. No hemorrhage. No acute infarct. The flow of the base of the right are intact. Ventricles: Unremarkable. No ventriculomegaly. Bones/joints: Unremarkable. No acute fracture. Sinuses: Unremarkable as visualized. No acute sinusitis. Mastoid air cells: Unremarkable as visualized. No mastoid effusion. Orbits: Unremarkable as visualized. IMPRESSION: No evidence of acute intracranial pathology. Minimal nonspecific white matter changes. Electronically signed by: Mary Abel MD 02/11/24 01:42 AM
[2024-02-11 05:54] LABS: Basophils # (auto) 0.04 K/uL (0.00-0.20); Basophils % (auto) 0.5 %; Eosinophils # (auto) 0.33 K/uL (0.00-0.50); Eosinophils % (auto) 3.8 %; Hematocrit (blood only) 37.5 % (37.0-47.0); Hemoglobin 12.3 g/dl (12.0-16.0); Immature Granulocytes # (auto) 0.02 K/uL (0.01-0.20); Immature Granulocytes % (auto) 0.2 %; Lymphocytes # (auto) 2.84 K/uL (1.20-3.40); Lymphocytes % (auto) 32.5 %; Mean Corpuscular Hgb Conc 32.8 g/dL (32.0-36.0); Mean Corpuscular Volume 91.5 fL (80.0-100.0); Mean Platelet Volume 11.8 fL (9.4-12.4); Monocytes # (auto) 0.76 K/uL (0.11-0.59); Monocytes % (auto) 8.7 %; Neutrophils # (auto) 4.75 K/uL (1.40-6.50); Neutrophils % (auto) 54.3 %; Platelet Count 326 K/uL (130-400); RDW Coefficient of Variation 13.6 % (11.5-14.5); RDW Standard Deviation 46.1 fL (36.4-46.3); White Blood Count 8.74 K/ul (4.8-10.8)
[2024-02-11 06:06] LABS: BUN Creatinine Ratio 20.8 (10-20); Calcium 9.1 mg/dl (8.6-10.3); Creatinine Clr Calc Pharmacy 65.5 ml/min; Est GFR (African American) 69.1 ml/min; Est GFR (Non-African American) 59.6 ml/min; Potassium 4.1 mmol/L (3.5-5.1)
[2024-02-11] MEDS: LEVOTHYROXINE SODIUM 112 MCG TABLET PO SCH (06:48)
[2024-02-11 06:55] LABS: Estimated Average Glucose 128 mg/dl; Hemoglobin A1C 6.1 % (4.5-5.6)
--- NOTE | 2024-02-11 07:49 | Hospitalist Progress Note ---
Date of Service February 11, 2024 Assessment & Plan (1) Stroke-like symptoms: Plan: Acute onset of right-sided facial weakness and right arm tingling around 1200 on 02/09 No facial droop or slurred speech; patient reports difficulty assessing unilateral deficits due to a recent right knee injury Note: She is currently completing a steroid taper for her knee which she started on 01/21 Head/neck imaging on arrival without acute findings Brain MRI no acute changes Echocardiogram pending 02/10 Aspirin 324 mg p.o. given in the ED DDx at this time includes TIA, CVA, ocular migraine, unilateral sinus pressure/infection, and barotrauma (among other etiologies) Aspirin 81 mg p.o. daily risk factors is diabetes, dyslipidemia (2) Diabetes: Plan: Last A1c 6.1% on 11/28/2023; prediabetic Hold metformin Will defer insulin at this time; diet controlled BSG ACHS A1c- 6.1 (3) Hypothyroid: Plan: Continue Synthroid Plan Full code VTE PPx: SCDs; Admission and Anticipated Discharge Date Admission Date: February 10, 2024 Results & Data Results & Data Vital Signs (Past 12 Hours) Vital Signs Temp Pulse Pulse Resp BP Pulse Ox O2 Del Method 02/11/24 07:34 69 02/11/24 03:13 97.7 F 61 18 111/65 97 Room Air 02/10/24 22:31 97.7 F 71 20 114/74 96 Room Air 02/10/24 22:31 02/10/24 21:00 71 16 114/65 97 Room Air O2 Del Method 02/11/24 07:34 02/11/24 03:13 02/10/24 22:31 02/10/24 22:31 Room Air 02/10/24 21:00 PG Care Time/CCT Total # of Minutes Spent Total Time Spent with Patient: Total time spent is greater than 50% in coordination of care (as documented) at patient's floor/unit and/or counseling patient: Coding Diagnoses Stroke-like symptoms R29.90 Diabetes E11.9 Acquired hypothyroidism E03.9 Hypothyroidism type: acquired (3) Hypothyroid Hypothyroidism type: acquired Qualified Code(s): E03.9 - Hypothyroidism, unspecified
[2024-02-11] MEDS: PRAVASTATIN SOD 10 MG TAB PO SCH (08:03)
[2024-02-11] MEDS: ASPIRIN 81 MG ECTAB PO SCH (08:03)
--- NOTE | 2024-02-11 09:36 | Neurology Consultation ---
Date of Consultation February 11, 2024 Assessment & Plan (1) Ill-defined condition: History of Present Illness Attending Physician: Tomer Jovel MD History of Present Illness pt with resolved symptoms and mri brain negative. pt with rt orbital area odd sensation and nausea yesterday without headache. pt doing well now and no symptoms. chart reviewed. pt wanting to go home today. admission HPI: Renée is a 63-year-old female with PMH of hypothyroidism, metabolic syndrome, Ovidio's, stress incontinence, and HLD. She presented on 02/09 for acute onset of right upper quadrant facial pressure and weakness. She notes that the pressure feels like a "brain freeze" and it is around her right eye, cheek, and forehead. No blurry vision, photophobia, or loss of vision. She thinks it could be related to her sinuses. She did go for a long hike on Friday, and while there was not significant elevation changes, she went for a hike the preceding Friday with higher elevation changes. She had 1 episode of similar symptoms 7 to 10 days ago that resolved after 5 minutes. Patient took all her regular morning medications today except for her metformin. She had a brief stomach illness (abdominal cramping, and N/V/D) last Friday and thought it could be a GI reaction to the metformin, which she has stopped taking for a couple days. Additionally, she is currently completing a oral prednisone taper for her right knee, which she has been on for the past 2 to 3 weeks. She had a knee injury during an exercise class II months ago, and has had intermittent weakness in her right knee ever since. Today, she denies any slurred speech, facial droop, or unilateral deficits (however she reports it is difficult to tell with her right knee injury). She does endorse some numbness and tingling in her right arm. While she does have a history of vertigo, she denies any lightheadedness or dizziness similar to past episodes. She also says she has a history of migraines 2-3 times per year, but she does not feel like it is similar to that; no aura or photophobia. Patient denies smoking, tobacco use, recent alcohol use. Patient reports she has a medication allergy to Bactrim; s he reports she has taken aspirin in the past without any allergy problems. She reports she is still feeling eye pressure and weakness at time of admission and that her symptoms have not fully resolved. Vital stable at time admission. Allergies Allergy/AdvReac Type Severity Reaction Status Date / Time sulfamethoxazole Allergy Verified 01/23/24 14:33 [From Bactrim] trimethoprim [From Bactrim] Allergy Verified 01/23/24 14:33 Home Medications Medication Instructions Recorded Confirmed Type clobetasol 0.05 % topical cream 0 appln topical BID PRN Unknown 03/11/19 02/10/24 History pentoxifylline 400 mg 0 mg PO TID PRN Unknown 03/06/21 02/10/24 History tablet,extended release valacyclovir 500 mg tablet 500 mg PO DAILY PRN herpes #90 tabs 09/24/23 02/10/24 Rx levothyroxine 112 mcg tablet 112 mcg PO DAILY 90 days #90 tabs 11/28/23 02/10/24 Rx pravastatin 10 mg tablet 10 mg PO DAILY #90 tabs 11/28/23 02/10/24 Rx meclizine 25 mg tablet 0 mg PO TID PRN dizziness 02/10/24 02/10/24 History meloxicam 7.5 mg tablet 0 mg PO DAILY PRN pain 02/10/24 02/10/24 History metformin 500 mg tablet,extended 0 mg PO DAILY 02/10/24 02/10/24 History release 24 hr ondansetron 4 mg disintegrating 0 mg PO Q8H PRN nausea and vomiting 02/10/24 02/10/24 History tablet scopolamine base 1 mg over 3 days 0 patch transdermal Q3D PRN nausea 02/10/24 02/10/24 History transdermal patch and vomiting Patient History Medical History Encounter for screening for malignant neoplasm of skin History of vaginal delivery Panniculitis Rash and nonspecific skin eruption Surgical History No pertinent past surgical history Family History Mother Coronary heart disease, Onset Age: 56 Myocardial infarction Hypothyroidism ESCALONA (nonalcoholic steatohepatitis) Father Macular degeneration Hypothyroidism Circulation disorder of lower extremity Brother Depression Diabetes Sister Depression Hypothyroidism Daughter No problems noted. 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 do You have: 1 Other Information That Helps Us Care for You: No Feels Safe at Home: Yes Safety Concerns: Feels Safe At This Time Childhood Exposure to Second-Hand Smoke: No Diet: regular Diet Comment: vegetarian sometimes trying to get back to it caffeine: Yes during the past year weight has: remained stable Dental Care, Regularly: Yes Physical Activity Frequency: Daily Seatbelt Use: always Sunscreen Use: Yes Assistive Devices: Glasses Exam (Neuro) Physical Exam: HEENT: normocephalic grossly Neuro: Mental: AOx4, fluent speech, normal comprehension, no apraxia, no L/R confusion, no neglect CN: PERRL, Full EOM, symmetric face, midline T/U/P, grossly full ROM neck Motor: No abnormal movements, normal tone, 5/5 t/o bilaterally Sens: intact to touch b/l grossly Coord: intact FNT b/l DTR: 2+ sym b/l Gait: intact grossly Impression: 63 yo female with resolved rt orbital ill defined symptoms and ?subjective forehead weakness. This does not localizes to DR[facility] and does not appears to be TIA event. More likely acephalgic migraine/headache if any. Recommendations: no further work up needed from neurology. i do not see the clear need for antiplatelet therapy for this pt as i do not suspect stroke/TIA. ok for discharge from neurology f/u with her PCP Chart reviewed I have spent more than 50% educating patient about potential diagnosis and neurological evaluation and coordinating care with patient's treatment team. Total time spent (including chart review and coordination of care): 45 min (this includes chart review). Results & Data Vital Signs (Past 12 Hours) Vital Signs Temp Pulse Pulse Resp BP Pulse Ox O2 Del Method 02/11/24 08:11 36.2 C L 58 L 16 104/68 99 Room Air 02/11/24 07:34 69 02/11/24 03:13 36.5 C 61 18 111/65 97 Room Air 02/10/24 22:31 36.5 C 71 20 114/74 96 Room Air 02/10/24 22:31 O2 Del Method 02/11/24 08:11 02/11/24 07:34 02/11/24 03:13 02/10/24 22:31 02/10/24 22:31 Room Air PG Care Time/CCT Total # of Minutes Spent Total Time Spent with Patient: Total time spent is greater than 50% in coordination of care (as documented) at patient's floor/unit and/or counseling patient: Coding Level of Care Code 05632 IN/OBS CONSULT LVL 3,45M Diagnoses Ill-defined condition R69
--- NOTE | 2024-02-11 10:49 | XCELERA ---
[id number] [id number]
--- NOTE | 2024-02-11 13:02 | Electrocardiogram Report ---
Test Reason : Blood Pressure : */* mmHG Vent. Rate : 69 BPM Atrial Rate : 69 BPM P-R Int : 126 ms QRS Dur : 78 ms QT Int : 392 ms P-R-T Axes : 42 0 11 degrees QTcB Int : 420 ms Normal sinus rhythm Normal ECG When compared with ECG of 18-Jun-2022 19:47, No significant change was found Confirmed by Alfredo Mast ([id number]) on 02/11/2024 1:02:02 PM Referred By: REFERRED SELF Confirmed By: Alfredo Mast
[2024-02-11 15:14] VITALS: BP 114/72; PULSE 73; RESP 18; TEMP 97.9; O2SAT 98
--- NOTE | 2024-02-11 16:55 | Discharge Summary ---
Discharge Summary Date of Service February 11, 2024 Principal Dx & Hospital Course #1 = Principal Diagnosis (1) Stroke-like symptoms: Acute onset of right-sided facial weakness and right arm tingling around 1200 on 02/09 No facial droop or slurred speech; patient reports difficulty assessing unilateral deficits due to a recent right knee injury Note: She is currently completing a steroid taper for her knee which she started on 01/21 Head/neck imaging on arrival without acute findings Brain MRI no acute changes Echocardiogram pending 02/10 patient is echocardiogram is unremarkable no intra- arterial shunt or embolic source Patient was evaluated by Dr. Brady neurology division did not feel this is consistent with a cerebrovascular event and did not recommend any antiplatelet therapies after discharge did recommend continue work on lifestyle modification including her dyslipidemia (2) Diabetes: Last A1c 6.1% on 11/28/2023; prediabetic Resume metformin Will defer insulin at this time; diet controlled BSG ACHS A1c- 6.1 (3) Hypothyroid: Continue Synthroid Plan Full code Notes For Next Care Provider Continue evaluate facial symptoms Admission HPI Per Admitting Provider Renée is a 63-year-old female with PMH of hypothyroidism, metabolic syndrome, Ovidio's, stress incontinence, and HLD. She presented on 02/09 for acute onset of right upper quadrant facial pressure and weakness. She notes that the pressure feels like a "brain freeze" and it is around her right eye, cheek, and forehead. No blurry vision, photophobia, or loss of vision. She thinks it could be related to her sinuses. She did go for a long hike on Friday, and while there was not significant elevation changes, she went for a hike the preceding Friday with higher elevation changes. She had 1 episode of similar symptoms 7 to 10 days ago that resolved after 5 minutes. Patient took all her regular morning medications today except for her metformin. She had a brief stomach illness (abdominal cramping, and N/V/D) last Friday and thought it could be a GI reaction to the metformin, which she has stopped taking for a couple days. Additionally, she is currently completing a oral prednisone taper for her right knee, which she has been on for the past 2 to 3 weeks. She had a knee injury during an exercise class II months ago, and has had intermittent weakness in her right knee ever since. Today, she denies any slurred speech, facial droop, or unilateral deficits (however she reports it is difficult to tell with her right knee injury). She does endorse some numbness and tingling in her right arm. While she does have a history of vertigo, she denies any lightheadedness or dizziness similar to past episodes. She also says she has a history of migraines 2-3 times per year, but she does not feel like it is simila r to that; no aura or photophobia. Patient denies smoking, tobacco use, recent alcohol use. Patient reports she has a medication allergy to Bactrim; she reports she has taken aspirin in the past without any allergy problems. She reports she is still feeling eye pressure and weakness at time of admission and that her symptoms have not fully resolved. Vital stable at time admission. ED course: ROS: Patient endorses swelling/weakness around the right eyelid, unilateral sinus pressure, numbness and tingling down the right arm, and weakness in the right knee. Patient denies fever, chills, sweating, dizziness, lightheadedness, blurry vision, loss of vision, photophobia, changes in hearing, tinnitus, ear pain, facial droop, slurred speech, word finding difficulty, confusion, tick bites, rashes, chest pain, chest palpitations, pleuritic CP, SOB, cough, abdominal pain (resolved), N/V/D (resolved), or changes in urinary bowel habits. Discharge Exam Awake alert appropriate. Patient has subjective symptoms but there are no objective findings. 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 Discharge Plan Discharge Items Patient Disposition: Home - Self-Care Reason For Visit: TIA, STROKE-LIKE SYMTPOMS Discharge Diagnosis: Self limited neurologic symptoms, Dr Brady did not feel a need for aspirin or plavix Activity: Resume your previous activity Non-emergency contact: Primary Care Provider Call non-emergency contact if: your symptoms worsen Follow-up/Referrals: Anastasia Ye MD [Primary Care Provider] - 02/13/24 3:40 pm (Hospital follow up scheduled February 12 at 3:40 in the [place] location on the 4th floor) Diet: Carb Consistent or DM2 Addtl Attending Provider Instructions: Please continue to watch for additional symptoms or new symptoms and be in contact with your pcp or return to the ER if concerns Pending Studies at Discharge: No Stand-Alone Forms: My [facility], Smoking Cessation Medications and DC Order Prescriptions: Continued valacyclovir 500 mg tablet 500 mg PO DAILY PRN (Reason: herpes) Qty: 90 1RF clobetasol 0.05 % cream 0 appln topical BID PRN (Reason: Unknown) Rx Instructions: Unable to verify w/ patient/pharmacy at this date/time. Original Directions: 1 application twice daily PRN pentoxifylline 400 mg tablet extended release 0 mg PO TID PRN (Reason: Unknown) Rx Instructions: Unable to verify w/ patient/pharmacy at this date/time. Original Directions: 400mg by mouth TID pravastatin 10 mg tablet 10 mg PO DAILY Qty: 90 1RF levothyroxine 112 mcg tablet 112 mcg PO DAILY 90 Days Qty: 90 1RF Rx Instructions: Take 1st thing in AM on empty stomach with water 30 min prior to any other oral intake. meloxicam 7.5 mg tablet 0 mg PO DAILY PRN (Reason: pain) Rx Instructions: Unable to verify w/ patient/pharmacy at this date/time. Original Directions:7.5mg by mouth daily PRN meclizine 25 mg tablet 0 mg PO TID PRN (Reason: dizziness) Rx Instructions: Unable to verify w/ patient/pharmacy at this date/time. Original Directions:25mg by mouth TID PRN scopolamine base 1 mg over 3 days patch 3 day 0 patch transdermal Q3D PRN (Reason: nausea and vomiting) Rx Instructions: Unable to verify w/ patient/pharmacy at this date/time. Original Directions: 1 patch transdermal q3D PRN ondansetron 4 mg tablet,disintegrating 0 mg PO Q8H PRN (Reason: nausea and vomiting) Rx Instructions: Unable to verify w/ patient/pharmacy at this date/time. Original Directions: 4mg by mouth q8h PRN metformin 500 mg tablet extended release 24 hr 0 mg PO DAILY Rx Instructions: Unable to verify w/ patient/pharmacy at this date/time. Original Directions: 500mg by mouth daily Discharge Orders: Discharge Order (Routine); Ordered 02/11/24 Ordered By: Tomer Pedroza/Other Patient Handouts: Prediabetes Admission Data Admit Date/Time: 02/10/24 20:55 Attending Provider: Tomer Jovel Admit Provider: Dereck García Primary Care Provider: Anastasia Ye Other Providers: Dereck García; [facility] Hospital Stay Data Consultations 02/10/24 19:34 ED Decision to Admit Stat 02/11/24 07:46 Consult Neurology Routine Diagnostic Imagining Performed 02/10/24 15:51 CT angio head w con Stat CT angio neck with con Stat CT head/brain wo con Stat 02/10/24 20:41 MRI Brain [MR brain wo con] Urgent Pending Results Patient Have Any Pending Studies at Discharge: No Discharge Instructions Given to Patient (Per Discharging Provider) Please continue to watch for additional symptoms or new symptoms and be in contact with your pcp or return to the ER if concerns Total Time Total Time Spent Total Time Spent (In Minutes): It required greater than 30 minutes to prepare this patient for discharge. Coding Level of Care Code 09254 INP/OBS DISCH >30 MIN Diagnoses Stroke-like symptoms R29.90 Diabetes E11.9 Acquired hypothyroidism E03.9 Hypothyroidism type: acquired
== END 2024-02-11 18:01 | disposition home or self-care (01) ==
LOC: ED 15:44 → 4W 15:44 → SUATTDRO 20:55 → 4W 21:43
DX: E03.9 Hypothyroidism, unspecified; Z88.2 Allergy status to sulfonamides; E78.5 Hyperlipidemia, unspecified; Z88.8 Allergy status to other drugs, medicaments and biological substances; R20.2 Paresthesia of skin; E06.3 Autoimmune thyroiditis; Z79.890 Hormone replacement therapy; E88.810 Metabolic syndrome; R29.810 Facial weakness; Z79.899 Other long term (current) drug therapy; Z79.84 Long term (current) use of oral hypoglycemic drugs; E11.9 Type 2 diabetes mellitus without complications

== ENCOUNTER 2024-04-30 18:22 | Inpatient (IN) ==
--- OUTSIDE RECORDS SUMMARY | 2024-04-30 18:27 | External Medical Summary | Continuity of Care Document ---
Author Name Unknown Organization [id number] Address [address] [place] [id number] Care Team Providers Care Calibrator Barometers Name Role Phone Ye, Anastasia Aris Primary Care Physician [phone] [facility] [id number] Date(s): 04/19/24 - 04/19/24 [facility] [address] [place] [address] [address] [facility] [address] [place] [id number] [place] [phone] Encounter Diagnosis Right knee meniscal tear(Discharge Diagnosis) - 04/19/24 Discharge Disposition: Home or Self Care Attending Physician: PENG Garcia [place] Referring Physician: MD Gregorio, Tyrone Hurst Allergies, Adverse Reactions, Alerts Substance Criticality Severity Reaction Reaction Severity Status Bactrim rash Active Medications levothyroxine 112 mcg (0.112 mg) oral tablet Start: 01/14/22 12:09:00 PM EDT, 100mcg Start Date: 01/14/22 Status: Ordered meloxicam 7.5 mg oral tablet Start: 01/14/22 12:09:00 PM EDT Start Date: 01/14/22 Status: Ordered MetFORMIN (Eqv-Glucophage XR) 500 mg oral tablet, extended release Start: 01/14/22 12:09:00 PM EDT Start Date: 01/14/22 Status: Ordered oxyCODONE 5 mg oral tablet Start: 04/19/24 12:13:00 PM EST, 5 mg =, PO, q4h, Disp# 10 tab, Refills: 0, Note to Pharmacy: initial therapy, PRN: as needed for pain, Pharmacy: [id number] Start Date: 04/19/24 Status: Ordered Ozempic 2 mg/1.5 mL (0.25 mg or 0.5 mg dose) subcutaneous solution Start: 01/14/22 12:09:00 PM EDT Start Date: 01/14/22 Status: Ordered valACYclovir 500 mg oral tablet Start: 01/14/22 12:10:00 PM EDT Start Date: 01/14/22 Status: Ordered Vitamin B-12 1000 mcg oral tablet Start: 03/19/24 9:06:00 AM EDT, 30 each, 0 Refill(s), TAKE 1 TABLET BY MOUTH EVERY DAY Start Date: 03/19/24 Status: Ordered Mental Status 04/19/24 Barriers to Learning one year None evide nt Mandatory Health Literacy Documentation Yes Health Literacy Communication Barriers N ever Primary Language Zambian Problem List Condition Confirmation Course Effective Dates Status Health St atus Informant Right carpal tunnel syndrome Confirmed Active Cubital tunnel syndrome on right Confirmed Active Right elbow pain Confirmed Active Left knee pain Confirmed Active Right hand paresthesia Confirmed Active Right knee meniscal tear Confirmed Active Diagnosis Diagnosis Type Effective Dates Health Status Cl inical Service Informant Right knee meniscal tear Discharge Diagnosis 04/19/24 Procedures Procedure Date Related Diagnosis Body Site Status Arthroscopy of knee 2023 Compl eted Social History Social History Type Response Smoking Status Never smoked cigaret misael Sex Sex Representation Female (finding) Patient Care team information Care Team Personnel Name: MD Ephraim, Anastasai Hurst Position: Referring Member Role: Primary Care Provider Address: [address] [place] [id number] Care Team Related Persons Name: NABILA FARRELL
--- NOTE | 2024-04-30 18:42 | Emergency Department Note ---
Impression & Plan SBO (small bowel obstruction) ADMIT ED Provider Note HPI: History obtained from patient. The patient is a 63-year-old female who presents the emergency department with a chief complaint of upper abdominal pain with nausea and vomiting this been ongoing for about the past 3 hours. Patient states that she has had recurrent issues with vomiting, patient denies any diarrhea, patient states the pain is in the area over her upper abdomen/epigastrium. On arrival here to the ED the patient is actively dry heaving, she is otherwise hemodynamically stable. Patient denies any chest pain or shortness of breath. ROS: - Per HPI Differential Diagnosis: Acute cholecystitis, acute pancreatitis, acute gastritis, peptic ulcer disease, small bowel obstruction, diverticulitis, acute appendicitis, amongst other potential pathologies. *Outpatient medications and allergy history reviewed. PE: General: Alert HEENT: Normocephalic, trachea midline Eyes: Extraocular eye movement is intact, no scleral erythema Pulmonary: Clear to auscultation bilaterally, no wheezing Cardio: Regular rate and rhythm GI: Abdomen is soft to palpation, there is moderate tenderness over the mid abdomen to palpation without guarding or rigidity, mild distention : No suprapubic tenderness MSK: No evidence of trauma or malformation of the extremities, no edema Skin: No evidence of rash Neuro: Alert, no focal deficits Psychiatric: Cooperative INDEPENDENT INTERPRETATIONS: surveillance system monitor: (As interpreted by myself): - An order was placed for continuous cardiac monitoring - Patient was noted to be in sinus rhythm with a rate of 90 EKG: (As interpreted by myself): Rate: 78 Rhythm: Normal sinus rhythm Intervals: Within normal limits ST changes: No ST elevation Time: 1833 Interventions provided in ED: -IV fluid bolus, IV morphine, IV Zofran Medical Decision Making: IV was established and lab work obtained, patient was placed on site monitor. Lab work shows a leukocytosis of 20.16, hemoglobin is normal, platelet count is normal, CMP does not show any evidence of any critical findings, there is no transaminitis, bilirubin is normal, troponin is negative. EKG per my interpretation shows normal sinus rhythm with a rate of 78 without any acute ischemic changes. CT imaging of the abdomen and pelvis with IV contrast was obtained and shows evidence of an acute on chronic small bowel obstruction with a transition point in the left lower quadrant per the interpreting radiologist. Patient was given IV fluids here in the ED as well as IV morphine and IV Zofran with good improvement in her symptoms. She has not had any recurrent issues with vomiting since her first episode when she arrived. She did have a small amount of blood in that emesis and therefore was placed on Protonix bolus and drip here in the ED and will avoid NG tube placement at this time given possibility of upper GI bleeding. She has not had any recurrent vomiting therefore will monitor closely. I discussed this patient with the on-call hospitalist, Dr. Noble, and the patient was accepted for inpatient care and further management. Patient was in agreement to this plan. Consultants/Discussions held with other healthcare providers: -Hospitalist, Dr. Noble Disposition discussion held by myself with: -Patient and patient's at the bedside Diagnosis: 1. Small bowel obstruction, acute 2. Leukocytosis, acute 3. Hematemesis, acute Disposition: Admission Stuart Chowdhury DO Emergency Medicine Past Med/Surg History Problem List (Updated 04/30/24 @ 21:15 by Stuart Chowdhury DO) SBO (small bowel obstruction) (Acute) Morbid (severe) obesity due to excess calories Vitamin D deficiency Subclinical hypothyroidism Hepatic steatosis Other obesity due to excess calories Vitamin B12 deficiency Internal derangement of knee Stress incontinence Hyperlipidemia Renal insufficiency Angioedema Dermatitis Carpal tunnel syndrome of right wrist Medial meniscus, posterior horn derangement Urinary urgency Recurrent urinary tract infection Bakers cyst Knee pain Greater trochanteric pain syndrome Chronic venous insufficiency Lumbar radiculopathy, acute Metabolic syndrome Iliotibial band syndrome affecting left lower leg Dietary counseling and surveillance Abnormal weight gain Obesity (Chronic) Ovidio's disease (Chronic) Prediabetes (Chronic) Lipodermatosclerosis Herpes genitalia (Chronic) Medical History Medial meniscus tear Right Hx of angioedema pt denies Hx of vertigo gets every few years Hyperlipidemia Pre-diabetes Hypothyroid History of vaginal delivery Surgical History History of colonoscopy 03/26/24 "with 2 polyps removed" Family History Mother Coronary heart disease, Onset Age: 56 Myocardial infarction Hypothyroidism ESCALONA (nonalcoholic steatohepatitis) Father Macular degeneration Hypothyroidism Circulation disorder of lower extremity Brother Depression Diabetes Sister Depression Hypothyroidism Daughter No problems noted. 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: No Beliefs That Will Affect Care: None marital status: Current Living Situation: Spouse current occupational status: employed 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 How many Children do You have: 1 Feels Safe at Home: Yes Childhood Exposure to Second-Hand Smoke: No Diet: regular Diet Comment: vegetarian sometimes trying to get back to it caffeine: Yes during the past year weight has: remained stable Dental Care, Regularly: Yes Physical Activity Frequency: Daily Seatbelt Use: always Sunscreen Use: Yes Assistive Devices: Glasses Allergies Allergies Allergy/AdvReac Type Severity Reaction Status Date / Time sulfamethoxazole Allergy Intermediate Throat Verified 04/08/24 08:40 [From Bactrim] Swelling trimethoprim [From Bactrim] Allergy Intermediate Throat Verified 04/08/24 08:40 Swelling Home Meds Home Medications Medication Instructions Recorded Confirmed scopolamine base 1 mg over 3 days 0 patch transdermal Q3D PRN nausea 02/10/24 04/08/24 transdermal patch and vomiting meclizine 25 mg tablet 25 mg PO TID PRN Dizziness Or 02/12/24 04/08/24 Vertigo metformin 500 mg tablet,extended 500 mg PO BID 03/05/24 04/08/24 release 24 hr levothyroxine 112 mcg tablet 112 mcg PO QAM 03/22/24 04/08/24 pravastatin 10 mg tablet 10 mg PO QDL 03/22/24 04/08/24 Previous Rx's Medication Instructions Recorded cyanocobalamin (vitamin B-12) 1,000 mcg PO DAILY #30 caps 02/20/24 1,000 mcg capsule valacyclovir 500 mg tablet 500 mg PO DAILY PRN herpes #90 tabs 03/31/24 Results & Data (ED) Vital Signs Vital Signs - 24 hr 04/30/24 18:22 04/30/24 18:22 04/30/24 18:40 Temperature 36.4 C L Temperature Source Oral Pulse Rate 76 76 Pulse Rhythm Regular Regular Pulse Strength Normal Respiratory Rate 16 16 Respiratory Effort / Characteristics Non-Labored Spontaneous Respiratory Depth Normal Respiratory Pattern Regular Blood Pressure 145/77 H Blood Pressure Mean 99 Blood Pressure Position Lying Pulse Oximetry 100 100 93 Oxygen Delivery Method Room Air Room Air Room Air Sepsis Recent Fever Within 48 Hours No Sepsis New/Unexplained Change in Mental Status No Sepsis Action Taken by Nursing No Action Required 04/30/24 18:41 Temperature Temperature Source Pulse Rate 85 Pulse Rhythm Pulse Strength Respiratory Rate Respiratory Effort / Characteristics Respiratory Depth Respiratory Pattern Blood Pressure Blood Pressure Mean Blood Pressure Position Pulse Oximetry Oxygen Delivery Method Sepsis Recent Fever Within 48 Hours Sepsis New/Unexplained Change in Mental Status Sepsis Action Taken by Nursing Laboratory Data 04/30/24 18:36 04/30/24 18:36 Lab Results 04/30/24 04/30/24 Range/Units 18:36 18:42 WBC 20.16 H (4.8-10.8) K/ul RBC 4.66 (4.20-5.40) M/uL Hgb 13.9 (12.0-16.0) g/dl POC Hgb 15.0 (12.0-16.0) g/dl Hct 41.3 (37.0-47.0) % POC Hct 44 (37-47) % MCV 88.6 (80.0-100.0) fL MCH 29.8 (25.0-34.0) pg MCHC 33.7 (32.0-36.0) g/dL RDW Std Deviation 42.3 (36.4-46.3) fL RDW Coeff of Zohaib 13.0 (11.5-14.5) % Plt Count 367 (130-400) K/uL MPV 11.7 (9.4-12.4) fL Immature Gran % (Auto) 0.5 % Neut % (Auto) 86.2 % Lymph % (Auto) 8.3 % [place] % (Auto) 4.0 % Eos % (Auto) 0.8 % Baso % (Auto) 0.2 % Neut # (Auto) 17.37 H (1.40-6.50) K/uL Lymph # (Auto) 1.67 (1.20-3.40) K/uL [place] # (Auto) 0.81 H (0.11-0.59) K/uL Eos # (Auto) 0.16 (0.00-0.50) K/uL Baso # (Auto) 0.05 (0.00-0.20) K/uL Immature Gran # (Auto) 0.10 (0.01-0.20) K/uL PT 10.3 (9.0-12.0) Seconds INR 0.9 (0.9-1.1) POC Sodium 139 (135-144) mmol/L Sodium 138 (136-145) mmol/L POC Potassium 4.3 (3.3-5.0) mmol/L Potassium 4.3 (3.5-5.1) mmol/L POC Chloride 103 (101-112) mmol/L Chloride 103 (98-107) mmol/L Carbon Dioxide 26 (21-32) mmol/L POC Total CO2 26 (24-31) mmol/L Anion Gap 9 (3-11) POC Anion Gap 15.0 L (16-25) mmol/L POC BUN 21 H (7-18) mg/dl BUN 17 (6-23) mg/dl Creatinine 1.00 (0.6-1.2) mg/dl POC Creatinine 1.0 (0.6-1.3) mg/dl Est Cr Clr Drug Dosing 70.3 ml/min eGFR 63.70 BUN/Creatinine Ratio 17.0 (10-20) Glucose 154 H (70-99(Fasting)) mg/dl POC Glucose (other) 151 H (70-99) mg/dl Calcium 10.1 (8.6-10.3) mg/dl POC Ioniz Calcium Noé 1.16 (1.12-1.32) mmol/l Total Bilirubin 0.5 (0.2-1.0) mg/dl AST 22 (13-39) U/L ALT 35 (7-52) U/L Alkaline Phosphatase 86 (34-104) U/L Troponin I High Sens 3.7 (0-14) pg/ml Total Protein 7.5 (6.0-8.3) gm/dl Albumin 4.3 (3.4-5.0) gm/dl Globulin 3.2 (2.5-4.0) gm/dl Albumin/Globulin Ratio 1.3 (0.9-2) Lipase 17 (11-82) U/L Administered Medications Discontinued Medications Sodium Chloride (Nss) 1,000 mls @ 999 mls/hr IV .Q1H1M STA Stop: 04/30/24 19:40 Last Infusion: 04/30/24 19:56 Dose: Infused Documented By: Admin: 04/30/24 18:54 Dose: 999 mls/hr Documented By: JOAQUINA Ioversol (Optiray 320 100ml) 92 ml IV ONCE ONE Stop: 04/30/24 19:50 Last Admin: 04/30/24 19:49 Dose: 92 ml Documented By: MALINDA Morphine Sulfate (Morphine Sulfate 4 Mg/Ml 1 Ml Carp\\Vial) 4 mg IV NOW STA Stop: 04/30/24 18:41 Last Admin: 04/30/24 18:54 Dose: 4 mg Documented By: JOAQUINA Ondansetron HCl (Ondansetron Inj 2 Mg/Ml 2 Ml Vial) 4 mg IV NOW STA Stop: 04/30/24 18:41 Last Admin: 04/30/24 18:54 Dose: 4 mg Documented By: JOAQUINA Imaging Data Radiologist's Impression: Abdomen/Pelvis CT 04/30/24 18:40 Exam(s): CT ABDOMEN + PELVIS With Contrast IV Amt: 92 ml opti 320 EXAM: CT Abdomen and Pelvis With Intravenous Contrast CLINICAL HISTORY: Abdominal Pain with nausea and vomiting. TECHNIQUE: Axial computed tomography images of the abdomen and pelvis with intravenous contrast. CTDI is 28.12 mGy and DLP is 1315.58 mGy-cm. Automated exposure control was utilized for the study. A dose lowering technique was utilized adhering to the principles of ALARA. CONTRAST: Patient received 92 ml opti 320 of IV contrast COMPARISON: Abdominal ultrasound 03/18/2024 FINDINGS: Lung bases: No consolidation. Mediastinum: Small hiatal hernia. ABDOMEN: Liver: Unremarkable. No mass. Gallbladder and bile ducts: Unremarkable. No calcified stones. No ductal dilation. Pancreas: Unremarkable. No mass. No ductal dilation. Spleen: Unremarkable. No splenomegaly. Adrenals: Unremarkable. No mass. Kidneys and ureters: Unremarkable. No solid mass. No hydronephrosis. Stomach and bowel: Acute on chronic small bowel obstruction with a transition point in the left lower quadrant. No mucosal thickening. PELVIS: Appendix: No findings to suggest acute appendicitis. Bladder: Unremarkable. No mass. Reproductive: Unremarkable as visualized. ABDOMEN and PELVIS: Intraperitoneal space: Unremarkable. No free air. No significant fluid collection. Bones/joints: There are degenerative changes of the spine. No acute fracture. No dislocation. Soft tissues: Unremarkable. Vasculature: Unremarkable. No abdominal aortic aneurysm. Lymph nodes: Unremarkable. No enlarged lymph nodes. IMPRESSION: 1. Acute on chronic small bowel obstruction with a transition point in the left lower quadrant. 2. Small hiatal hernia. Electronically signed by: Jessica Rocha MD 04/30/24 20:34 PM Discharge Plan Visit Data Chief Complaint: Illness Stated Complaint: Generalized Illness ED Provider: Stuart Chowdhury Discharge Problem: SBO (small bowel obstruction) Forms Stand Alone Forms: [employer] Prescriptions Prescriptions: No Action cyanocobalamin (vitamin B-12) 1,000 mcg capsule 1,000 mcg PO DAILY Qty: 30 2RF valacyclovir 500 mg tablet 500 mg PO DAILY PRN (Reason: herpes) Qty: 90 1RF metformin 500 mg tablet extended release 24 hr 500 mg PO BID Patient Comments: Patient states some days she takes twice a day, some days daily. Ordered Daily pravastatin 10 mg tablet 10 mg PO QDL levothyroxine 112 mcg tablet 112 mcg PO QAM Rx Instructions: Take 1st thing in AM on empty stomach with water 30 min prior to any other oral intake. scopolamine base 1 mg over 3 days patch 3 day 0 patch transdermal Q3D PRN (Reason: nausea and vomiting) Rx Instructions: Unable to verify w/ patient/pharmacy at this date/time. Original Directions: 1 patch transdermal q3D PRN meclizine 25 mg tablet 25 mg PO TID PRN (Reason: Dizziness Or Vertigo) Referrals Referrals: Anastasia Ye MD [Primary Care Provider] -
[2024-04-30 18:54] LABS: iSTAT Ionized Calcium 1.16 mmol/l (1.12-1.32); iSTAT Potassium 4.3 mmol/L (3.3-5.0)
[2024-04-30] MEDS: ONDANSETRON INJ 2 MG/ML 2 ML VIAL IV STA (18:54)
[2024-04-30] MEDS: MoRPHine SULFATE 4 MG/ML 1 ML CARP\\VIAL IV STA ×2 (18:54→23:55)
[2024-04-30] MEDS: SODIUM CHLORIDE 0.9% 1,000 ML IV STA (18:54)
[2024-04-30 18:57] LABS: Basophils # (auto) 0.05 K/uL (0.00-0.20); Basophils % (auto) 0.2 %; Eosinophils # (auto) 0.16 K/uL (0.00-0.50); Eosinophils % (auto) 0.8 %; Hematocrit (blood only) 41.3 % (37.0-47.0); Hemoglobin 13.9 g/dl (12.0-16.0); Immature Granulocytes % (auto) 0.5 %; Lymphocytes # (auto) 1.67 K/uL (1.20-3.40); Lymphocytes % (auto) 8.3 %; Mean Corpuscular Hemoglobin 29.8 pg (25.0-34.0); Mean Corpuscular Hgb Conc 33.7 g/dL (32.0-36.0); Mean Corpuscular Volume 88.6 fL (80.0-100.0); Mean Platelet Volume 11.7 fL (9.4-12.4); Monocytes # (auto) 0.81 K/uL (0.11-0.59); Neutrophils # (auto) 17.37 K/uL (1.40-6.50); Neutrophils % (auto) 86.2 %; Platelet Count 367 K/uL (130-400); RDW Standard Deviation 42.3 fL (36.4-46.3); Red Blood Count 4.66 M/uL (4.20-5.40); White Blood Count 20.16 K/ul (4.8-10.8)
[2024-04-30 19:13] LABS: Albumin Globulin Ratio 1.3 (0.9-2); Albumin Level 4.3 gm/dl (3.4-5.0); Bilirubin,Total 0.5 mg/dl (0.2-1.0); Calcium 10.1 mg/dl (8.6-10.3); Creatinine Clr Calc Pharmacy 70.3 ml/min; Globulin 3.2 gm/dl (2.5-4.0); Potassium 4.3 mmol/L (3.5-5.1); Total Protein 7.5 gm/dl (6.0-8.3)
[2024-04-30 19:20] LABS: Troponin I High Sensitivity 3.7 pg/ml (0-14)
[2024-04-30 19:23] LABS: INR 0.9 (0.9-1.1); Prothrombin Time 10.3 Seconds (9.0-12.0)
[2024-04-30] MEDS: OPTIRAY 320 100ml IV ONE (19:49)
--- NOTE | 2024-04-30 20:35 | CT Scan Report ---
Exam(s): CT ABDOMEN + PELVIS With Contrast IV Amt: 92 ml opti 320 EXAM: CT Abdomen and Pelvis With Intravenous Contrast CLINICAL HISTORY: Abdominal Pain with nausea and vomiting. TECHNIQUE: Axial computed tomography images of the abdomen and pelvis with intravenous contrast. CTDI is 28.12 mGy and DLP is 1315.58 mGy-cm. Automated exposure control was utilized for the study. A dose lowering technique was utilized adhering to the principles of ALARA. CONTRAST: Patient received 92 ml opti 320 of IV contrast COMPARISON: Abdominal ultrasound 03/18/2024 FINDINGS: Lung bases: No consolidation. Mediastinum: Small hiatal hernia. ABDOMEN: Liver: Unremarkable. No mass. Gallbladder and bile ducts: Unremarkable. No calcified stones. No ductal dilation. Pancreas: Unremarkable. No mass. No ductal dilation. Spleen: Unremarkable. No splenomegaly. Adrenals: Unremarkable. No mass. Kidneys and ureters: Unremarkable. No solid mass. No hydronephrosis. Stomach and bowel: Acute on chronic small bowel obstruction with a transition point in the left lower quadrant. No mucosal thickening. PELVIS: Appendix: No findings to suggest acute appendicitis. Bladder: Unremarkable. No mass. Reproductive: Unremarkable as visualized. ABDOMEN and PELVIS: Intraperitoneal space: Unremarkable. No free air. No significant fluid collection. Bones/joints: There are degenerative changes of the spine. No acute fracture. No dislocation. Soft tissues: Unremarkable. Vasculature: Unremarkable. No abdominal aortic aneurysm. Lymph nodes: Unremarkable. No enlarged lymph nodes. IMPRESSION: 1. Acute on chronic small bowel obstruction with a transition point in the left lower quadrant. 2. Small hiatal hernia. Electronically signed by: Jessica Rocha MD 04/30/24 20:34 PM
--- NOTE | 2024-04-30 21:03 | History & Physical Report ---
Date of Service April 30, 2024 Assessment & Plan (1) SBO (small bowel obstruction): Plan: 63yo female with no prior abdominal surgery presenting with SBO with transition point note dint he left lower quadrant. Still with abdominal pain and nausea although improving. -Admit to medical -Maintain NPO -Maintain aspiration precautions -Will hold off on NGT for now as patient with improved pain and nausea, no abdominal distention -LR at 125mL/hr x 2 liters ordered -Morphine as needed for pain - cautious use as patient reports developing constipation in the past with use of opiates -Zofran PRN nausea -General Surgery consultation appreciated (2) Hematemesis: Plan: Seems to be self limiting. No additional episodes of hematemesis -Protonix bolus and drip started in the ER -Continue Protonix drip for now -Repeat CBC in AM Plan Recent right meniscus repair - patient reports pain is well controlled -Maintain knee immobilizer -Non-weight bearing to RLE -Fall precautions -Holding ASA for now given report of hematemesis. SCDs to bilateral LE for DVT prophylaxis. If patient improved tomorrow would initiate DVT prophylaxis, consider Lovenox while inpatient. Consider discharge on ASA 81mg po BID rather than 325mg po BID for DVT prophylaxis if approved by Orthopedics History of Present Illness Chief Complaint: abdominal pain Primary Care Provider: Anastasia Ye MD Renée Thornton is a 63yo female with history of HLP, pre-DM and hypothyroidism presenting with abdominal pain, nausea and vomiting. Patient with no prior abdominal surgeries. She did have a colonoscopy on March 26, 2024 with two polyps removed from the splenic flexure and sigmoid colon. Patient ate a late lunch with her today around 14:00. During lunch she developed some mid-abdominal pain and feeling bloated and distended. She then developed nausea with multiple episodes of vomiting. states that she vomited every 10-15 minutes. She did have some hematemesis noted by her at one point. Ongoing nausea and abdominal pain. Patient had a right knee arthroscopy with medial meniscus root repair performed by Dr. Perkins on 04/08/24. She has been on ASA 325mg po BID for DVT prophylaxis since. She has a knee immobilizer in place and has been ambulating by hopping on her left leg and using a walker. She is to be [id number] to the RLE for 3 more weeks. She has been participating in PT - last note 04/26/24 Patient reports significant constipation that developed post-operatively where she did not have a BM for one week. She took Magnesium Citrate which ultimately resulted in a BM. Reports fairly normal BMs since. Allergies Allergy/AdvReac Type Severity Reaction Status Date / Time sulfamethoxazole Allergy Intermediate Throat Verified 04/08/24 08:40 [From Bactrim] Swelling trimethoprim [From Bactrim] Allergy Intermediate Throat Verified 04/08/24 08:40 Swelling Home Medications Medication Instructions Recorded Confirmed Type scopolamine base 1 mg over 3 days 0 patch transdermal Q3D PRN nausea 02/10/24 04/30/24 History transdermal patch and vomiting meclizine 25 mg tablet 25 mg PO TID PRN Dizziness Or 02/12/24 04/08/24 History Vertigo cyanocobalamin (vitamin B-12) 1,000 mcg PO DAILY #30 caps 02/20/24 04/30/24 Rx 1,000 mcg capsule metformin 500 mg tablet,extended 500 mg PO BID 03/05/24 04/30/24 History release 24 hr levothyroxine 112 mcg tablet 112 mcg PO QAM 03/22/24 04/30/24 History pravastatin 10 mg tablet 10 mg PO QDL 03/22/24 04/30/24 History valacyclovir 500 mg tablet 500 mg PO DAILY PRN herpes #90 tabs 03/31/24 04/30/24 Rx Past Med/Surg History Problem List (Updated 04/30/24 @ 23:35 by Grace Noble DO) Hematemesis SBO (small bowel obstruction) (Acute) Morbid (severe) obesity due to excess calories Vitamin D deficiency Subclinical hypothyroidism Hepatic steatosis Other obesity due to excess calories Vitamin B12 deficiency Internal derangement of knee Stress incontinence Hyperlipidemia Renal insufficiency Angioedema Dermatitis Carpal tunnel syndrome of right wrist Medial meniscus, posterior horn derangement Urinary urgency Recurrent urinary tract infection Bakers cyst Knee pain Greater trochanteric pain syndrome Chronic venous insufficiency Lumbar radiculopathy, acute Metabolic syndrome Iliotibial band syndrome affecting left lower leg Dietary counseling and surveillance Abnormal weight gain Obesity (Chronic) Ovidio's disease (Chronic) Prediabetes (Chronic) Lipodermatosclerosis Herpes genitalia (Chronic) Medical History Medial meniscus tear Right Hx of angioedema pt denies Hx of vertigo gets every few years Hyperlipidemia Pre-diabetes Hypothyroid History of vaginal delivery Surgical History History of colonoscopy 03/26/24 "with 2 polyps removed" Family History Mother Coronary heart disease, Onset Age: 56 Myocardial infarction Hypothyroidism ESCALONA (nonalcoholic steatohepatitis) Father Macular degeneration Hypothyroidism Circulation disorder of lower extremity Brother Depression Diabetes Sister Depression Hypothyroidism Daughter No problems noted. 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 How many Children do You have: 1 Feels Safe at Home: Yes Childhood Exposure to Second-Hand Smoke: No Diet: regular Diet Comment: vegetarian sometimes trying to get back to it caffeine: Yes during the past year weight has: remained stable Dental Care, Regularly: Yes Physical Activity Frequency: Daily Seatbelt Use: always Sunscreen Use: Yes Assistive Devices: Glasses Review of Systems Review of Systems: All systems reviewed & are unremarkable except as noted in HPI & below Physical Exam Physical Exam: General: patient resting comfortably, NAD, non-toxic in appearance, AA&O x 4 Skin: warm, dry, intact, no rashes or lesions HEENT: NC/AT, PERRL, EOMI, anicteric sclera, conjunctiva without injection, external ear normal to inspection and nontender, nares patent, moist mucus membranes, dentition intact, no oropharyngeal lesions, neck supple, trachea midline, no LAD, no thyromegaly, no JVD Heart: +S1/S2, regular, no m/r/g Lungs: equal air entry bilaterally, no rales/rhonchi/wheezes Abd: markedly diminished bowel sounds, soft, tenderness in lower abdomen without rebound/guarding/peritonitis, ND, no masses/organomegaly/ascites Ext: warm, 2+ pulses in UE/LE bilaterally, no clubbing/cyanosis or edema, RLE knee immobilizer in place Neuro: nonfocal, patient AA&O x 4, speech intact, no facial droop, moving all extremities on command with equal strength 5/5 Results & Data Results & Data Vital Signs (Past 12 Hours) Vital Signs Temp Pulse Resp BP Pulse Ox O2 Del Method 04/30/24 18:41 85 04/30/24 18:40 93 Room Air 04/30/24 18:22 76 16 100 Room Air 04/30/24 18:22 36.4 C L 76 16 145/77 H 100 Room Air Laboratory Results Laboratory Results WBC 20.16 K/ul (4.8-10.8) H 04/30/24 18:36 RBC 4.66 M/uL (4.20-5.40) 04/30/24 18:36 Hgb 13.9 g/dl (12.0-16.0) 04/30/24 18:36 POC Hgb 15.0 g/dl (12.0-16.0) 04/30/24 18:42 Hct 41.3 % (37.0-47.0) 04/30/24 18:36 POC Hct 44 % (37-47) 04/30/24 18:42 MCV 88.6 fL (80.0-100.0) 04/30/24 18:36 MCH 29.8 pg (25.0-34.0) 04/30/24 18:36 MCHC 33.7 g/dL (32.0-36.0) 04/30/24 18:36 RDW Std Deviation 42.3 fL (36.4-46.3) 04/30/24 18:36 RDW Coeff of Zohaib 13.0 % (11.5-14.5) 04/30/24 18:36 Plt Count 367 K/uL (130-400) 04/30/24 18:36 MPV 11.7 fL (9.4-12.4) 04/30/24 18:36 Immature Gran % (Auto) 0.5 % 04/30/24 18:36 Neut % (Auto) 86.2 % 04/30/24 18:36 Lymph % (Auto) 8.3 % 04/30/24 18:36 [place] % (Auto) 4.0 % 04/30/24 18:36 Eos % (Auto) 0.8 % 04/30/24 18:36 Baso % (Auto) 0.2 % 04/30/24 18:36 Neut # (Auto) 17.37 K/uL (1.40-6.50) H 04/30/24 18:36 Lymph # (Auto) 1.67 K/uL (1.20-3.40) 04/30/24 18:36 [place] # (Auto) 0.81 K/uL (0.11-0.59) H 04/30/24 18:36 Eos # (Auto) 0.16 K/uL (0.00-0.50) 04/30/24 18:36 Baso # (Auto) 0.05 K/uL (0.00-0.20) 04/30/24 18:36 Immature Gran # (Auto) 0.10 K/uL (0.01-0.20) 04/30/24 18:36 PT 10.3 Seconds (9.0-12.0) 04/30/24 18:36 INR 0.9 (0.9-1.1) 04/30/24 18:36 POC Sodium 139 mmol/L (135-144) 04/30/24 18:42 Sodium 138 mmol/L (136-145) 04/30/24 18:36 POC Potassium 4.3 mmol/L (3.3-5.0) 04/30/24 18:42 Potassium 4.3 mmol/L (3.5-5.1) 04/30/24 18:36 POC Chloride 103 mmol/L (101-112) 04/30/24 18:42 Chloride 103 mmol/L (98-107) 04/30/24 18:36 Carbon Dioxide 26 mmol/L (21-32) 04/30/24 18:36 POC Total CO2 26 mmol/L (24-31) 04/30/24 18:42 Anion Gap 9 (3-11) 04/30/24 18:36 POC Anion Gap 15.0 mmol/L (16-25) L 04/30/24 18:42 POC BUN 21 mg/dl (7-18) H 04/30/24 18:42 BUN 17 mg/dl (6-23) 04/30/24 18:36 Creatinine 1.00 mg/dl (0.6-1.2) 04/30/24 18:36 POC Creatinine 1.0 mg/dl (0.6-1.3) 04/30/24 18:42 Est Cr Clr Drug Dosing 70.3 ml/min 04/30/24 18:36 eGFR 63.70 04/30/24 18:36 BUN/Creatinine Ratio 17.0 (10-20) 04/30/24 18:36 Glucose 154 mg/dl (70-99(Fasting)) H 04/30/24 18:36 POC Glucose (other) 151 mg/dl (70-99) H 04/30/24 18:42 Calcium 10.1 mg/dl (8.6-10.3) 04/30/24 18:36 POC Ioniz Calcium Noé 1.16 mmol/l (1.12-1.32) 04/30/24 18:42 Phosphorus 3.4 mg/dl (2.5-4.9) 04/30/24 18:36 Magnesium 1.7 mg/dl (1.7-2.4) 04/30/24 18:36 Total Bilirubin 0.5 mg/dl (0.2-1.0) 04/30/24 18:36 AST 22 U/L (13-39) 04/30/24 18:36 ALT 35 U/L (7-52) 04/30/24 18:36 Alkaline Phosphatase 86 U/L (34-104) 04/30/24 18:36 Troponin I High Sens 3.7 pg/ml (0-14) 04/30/24 18:36 Total Protein 7.5 gm/dl (6.0-8.3) 04/30/24 18:36 Albumin 4.3 gm/dl (3.4-5.0) 04/30/24 18:36 Globulin 3.2 gm/dl (2.5-4.0) 04/30/24 18:36 Albumin/Globulin Ratio 1.3 (0.9-2) 04/30/24 18:36 Lipase 17 U/L (11-82) 04/30/24 18:36 Impressions Abdomen/Pelvis CT 04/30/24 18:40 Exam(s): CT ABDOMEN + PELVIS With Contrast IV Amt: 92 ml opti 320 EXAM: CT Abdomen and Pelvis With Intravenous Contrast CLINICAL HISTORY: Abdominal Pain with nausea and vomiting. TECHNIQUE: Axial computed tomography images of the abdomen and pelvis with intravenous contrast. CTDI is 28.12 mGy and DLP is 1315.58 mGy-cm. Automated exposure control was utilized for the study. A dose lowering technique was utilized adhering to the principles of ALARA. CONTRAST: Patient received 92 ml opti 320 of IV contrast COMPARISON: Abdominal ultrasound 03/18/2024 FINDINGS: Lung bases: No consolidation. Mediastinum: Small hiatal hernia. ABDOMEN: Liver: Unremarkable. No mass. Gallbladder and bile ducts: Unremarkable. No calcified stones. No ductal dilation. Pancreas: Unremarkable. No mass. No ductal dilation. Spleen: Unremarkable. No splenomegaly. Adrenals: Unremarkable. No mass. Kidneys and ureters: Unremarkable. No solid mass. No hydronephrosis. Stomach and bowel: Acute on chronic small bowel obstruction with a transition point in the left lower quadrant. No mucosal thickening. PELVIS: Appendix: No findings to suggest acute appendicitis. Bladder: Unremarkable. No mass. Reproductive: Unremarkable as visualized. ABDOMEN and PELVIS: Intraperitoneal space: Unremarkable. No free air. No significant fluid collection. Bones/joints: There are degenerative changes of the spine. No acute fracture. No dislocation. Soft tissues: Unremarkable. Vasculature: Unremarkable. No abdominal aortic aneurysm. Lymph nodes: Unremarkable. No enlarged lymph nodes. IMPRESSION: 1. Acute on chronic small bowel obstruction with a transition point in the left lower quadrant. 2. Small hiatal hernia. Electronically signed by: Jessica Rocha MD 04/30/24 20:34 PM Code Status & VTE Plan VTE Prophylaxis Plan VTE Prophylaxis will be ordered: Yes PG Care Time/CCT Total # of Minutes Spent Total Time Spent with Patient: Total time spent is greater than 50% in coordination of care (as documented) at patient's floor/unit and/or counseling patient: Coding Level of Care Code 67392 INT INP/OBS CARE 3/75MIN Diagnoses SBO (small bowel obstruction) K56.609 Hematemesis K92.0
[2024-04-30] MEDS ORDERED: PROCHLORPERAZINE 1 ML IV ONE (21:09)
[2024-04-30] MEDS: PANTOprazole 80 MG in DEXTROSE 5% 100 ML IV ONE (21:27)
[2024-04-30] MEDS: PANTOPRAZOLE BOLUS/DRIP IV STA (21:29)
[2024-04-30] MEDS: PROCHLORPERAZINE 5 MG in SYRINGE 4 ML IV ONE (21:30)
[2024-04-30] MEDS: PANTOprazole 40 MG in DEXTROSE 5% MINI-B 100 ML IV SCH (21:45)
[2024-04-30] MEDS ORDERED: ONDANSETRON INJ 2 MG/ML 2 ML VIAL IV PRN (22:39)
[2024-04-30] MEDS ORDERED: MoRPHine SULFATE 4 MG/ML 1 ML CARP\\VIAL IV PRN (22:39)
[2024-04-30 23:13] LABS: Magnesium 1.7 mg/dl (1.7-2.4)
[2024-04-30 23:18] LABS: Phosphorus 3.4 mg/dl (2.5-4.9)
[2024-05-01] MEDS: LACTATED RINGER'S 1,000 ML IV SCH (00:11)
[2024-05-01 07:06] LABS: Hematocrit (blood only) 36.4 % (37.0-47.0); Hemoglobin 12.3 g/dl (12.0-16.0); Mean Corpuscular Hemoglobin 29.7 pg (25.0-34.0); Mean Corpuscular Hgb Conc 33.8 g/dL (32.0-36.0); Mean Corpuscular Volume 87.9 fL (80.0-100.0); Mean Platelet Volume 11.5 fL (9.4-12.4); Platelet Count 357 K/uL (130-400); RDW Coefficient of Variation 13.1 % (11.5-14.5); RDW Standard Deviation 41.9 fL (36.4-46.3); Red Blood Count 4.14 M/uL (4.20-5.40); White Blood Count 10.33 K/ul (4.8-10.8)
[2024-05-01 07:25] LABS: BUN Creatinine Ratio 14.4 (10-20); Creatinine Clr Calc Pharmacy 78.1 ml/min; Potassium 4.3 mmol/L (3.5-5.1)
--- NOTE | 2024-05-01 09:53 | Gastrointestinal Consultation ---
Date of Consultation May 01, 2024 Assessment & Plan (1) Hematemesis: Patient with a report of hematemesis after several episodes of vomiting. Given the history of NSAID use peptic ulcer disease is certainly within the differential we will other possibilities include a [place] tear. As the patient did have a drop in her hemoglobin and hematocrit overnight I think it would be prudent to proceed with endoscopic evaluation. The patient and I have discussed the risks of upper endoscopy to include bleeding, infection, perforation, pain, aspiration, cardia,c pulmonaryy problems and increased risk of aspiration given the acute nature of her presentation. Plan Upper endoscopy Protonix drip Hold nonsteroidals please N.p.o. Please History of Present Illness Reason for Consultation: Hematemesis Attending Physician: Carroll Ladd MD History of Present Illness The patient is a 63-year-old female she underwent a meniscal repair several weeks ago and presented yesterday evening with nausea and vomiting. The patient reports that she has had some passage of dark stool over the last few days in addition to developing severe discomfort in her mid epigastric region followed by several episodes of emesis. Number of the episodes did include hematemesis. The patient has been taking higher than average doses of aspirin as an outpatient due to the recent knee repair. Imaging from the ER vanessa possible acute on chronic small bowel obstruction. Allergies Allergy/AdvReac Type Severity Reaction Status Date / Time sulfamethoxazole Allergy Intermediate Throat Verified 04/08/24 08:40 [From Bactrim] Swelling trimethoprim [From Bactrim] Allergy Intermediate Throat Verified 04/08/24 08:40 Swelling Home Medications Medication Instructions Recorded Confirmed Type scopolamine base 1 mg over 3 days 0 patch transdermal Q3D PRN nausea 02/10/24 04/30/24 History transdermal patch and vomiting meclizine 25 mg tablet 25 mg PO TID PRN Dizziness Or 02/12/24 04/08/24 History Vertigo cyanocobalamin (vitamin B-12) 1,000 mcg PO DAILY #30 caps 02/20/24 04/30/24 Rx 1,000 mcg capsule metformin 500 mg tablet,extended 500 mg PO BID 03/05/24 04/30/24 History release 24 hr levothyroxine 112 mcg tablet 112 mcg PO QAM 03/22/24 04/30/24 History pravastatin 10 mg tablet 10 mg PO QDL 03/22/24 04/30/24 History valacyclovir 500 mg tablet 500 mg PO DAILY PRN herpes #90 tabs 03/31/24 04/30/24 Rx Patient History Medical History Medial meniscus tear Right Hx of angioedema pt denies Hx of vertigo gets every few years Hyperlipidemia Pre-diabetes Hypothyroid History of vaginal delivery Surgical History History of colonoscopy 03/26/24 "with 2 polyps removed" Family History Mother Coronary heart disease, Onset Age: 56 Myocardial infarction Hypothyroidism ESCALONA (nonalcoholic steatohepatitis) Father Macular degeneration Hypothyroidism Circulation disorder of lower extremity Brother Depression Diabetes Sister Depression Hypothyroidism Daughter No problems noted. 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 do You have: 1 Other Information That Helps Us Care for You: No Feels Safe at Home: Yes Safety Concerns: Feels Safe At This Time Childhood Exposure to Second-Hand Smoke: No Diet: regular Diet Comment: vegetarian sometimes trying to get back to it caffeine: Yes during the past year weight has: remained stable Dental Care, Regularly: Yes Physical Activity Frequency: Daily Seatbelt Use: always Sunscreen Use: Yes Assistive Devices: Glasses and Walker Review of Systems Ear, Nose, Mouth, Throat: + sore throat Respiratory: no change in sputum Gastrointestinal: + bloating, + nausea, + vomiting and + h ematemesis Musculoskeletal: no back pain Neurologic: no falls Hematologic / Lymphatic: no coagulopathy, no lymphadenopathy and no unexplained weight loss Physical Exam Constitutional: WD/WN, vitals as above ENMT: external ear and nose normal, oropharynx normal Neck: trachea midline, no thyromegaly Respiratory: Auscultation: no crackles and no wheezes Cardiovascular: Rate/Rhythm: regular rate Gastrointestinal (Abdomen): Percussion/Palpation: + abdomen tender and abdomen soft; no guarding and abdomen not rigid Results & Data Vital Signs (Past 12 Hours) Vital Signs Temp Pulse Pulse Resp BP BP BP 05/01/24 07:22 36.7 C 73 16 96/60 L 04/30/24 23:44 36.4 C L 70 16 127/78 04/30/24 22:16 04/30/24 22:00 64 15 122/69 Pulse Ox O2 Del Method 05/01/24 07:22 96 Room Air 04/30/24 23:44 95 Room Air 04/30/24 22:16 Room Air 04/30/24 22:00 98 Laboratory Results Laboratory Results - last 24 hr 04/30/24 04/30/24 05/01/24 18:36 18:42 06:30 WBC 20.16 H 10.33 RBC 4.66 4.14 L Hgb 13.9 12.3 POC Hgb 15.0 Hct 41.3 36.4 L POC Hct 44 MCV 88.6 87.9 MCH 29.8 29.7 MCHC 33.7 33.8 RDW Std Deviation 42.3 41.9 RDW Coeff of Zohaib 13.0 13.1 Plt Count 367 357 MPV 11.7 11.5 Immature Gran % (Auto) 0.5 Neut % (Auto) 86.2 Lymph % (Auto) 8.3 [place] % (Auto) 4.0 Eos % (Auto) 0.8 Baso % (Auto) 0.2 Neut # (Auto) 17.37 H Lymph # (Auto) 1.67 [place] # (Auto) 0.81 H Eos # (Auto) 0.16 Baso # (Auto) 0.05 Immature Gran # (Auto) 0.10 PT 10.3 INR 0.9 POC Sodium 139 Sodium 138 141 POC Potassium 4.3 Potassium 4.3 4.3 POC Chloride 103 Chloride 103 107 Carbon Dioxide 26 26 POC Total CO2 26 Anion Gap 9 8 POC Anion Gap 15.0 L POC BUN 21 H BUN 17 13 Creatinine 1.00 0.90 POC Creatinine 1.0 Est Cr Clr Drug Dosing 70.3 78.1 eGFR 63.70 72.28 BUN/Creatinine Ratio 17.0 14.4 Glucose 154 H 112 H POC Glucose (other) 151 H Calcium 10.1 9.0 POC Ioniz Calcium Noé 1.16 Phosphorus 3.4 Magnesium 1.7 Total Bilirubin 0.5 AST 22 ALT 35 Alkaline Phosphatase 86 Troponin I High Sens 3.7 Total Protein 7.5 Albumin 4.3 Globulin 3.2 Albumin/Globulin Ratio 1.3 Lipase 17 Diagnostic Findings Exam(s): CT ABDOMEN + PELVIS With Contrast IV Amt: 92 ml opti 320 EXAM: CT Abdomen and Pelvis With Intravenous Contrast CLINICAL HISTORY: Abdominal Pain with nausea and vomiting. TECHNIQUE: Axial computed tomography images of the abdomen and pelvis with intravenous contrast. CTDI is 28.12 mGy and DLP is 1315.58 mGy-cm. Automated exposure control was utilized for the study. A dose lowering technique was utilized adhering to the principles of ALARA. CONTRAST: Patient received 92 ml opti 320 of IV contrast COMPARISON: Abdominal ultrasound 03/18/2024 FINDINGS: Lung bases: No consolidation. Mediastinum: Small hiatal hernia. ABDOMEN: Liver: Unremarkable. No mass. Gallbladder and bile ducts: Unremarkable. No calcified stones. No ductal dilation. Pancreas: Unremarkable. No mass. No ductal dilation. Spleen: Unremarkable. No splenomegaly. Adrenals: Unremarkable. No mass. Kidneys and ureters: Unremarkable. No solid mass. No hydronephrosis. Stomach and bowel: Acute on chronic small bowel obstruction with a transition point in the left lower quadrant. No mucosal thickening. PELVIS: Appendix: No findings to suggest acute appendicitis. Bladder: Unremarkable. No mass. Reproductive: Unremarkable as visualized. ABDOMEN and PELVIS: Intraperitoneal space: Unremarkable. No free air. No significant fluid collection. Bones/joints: There are degenerative changes of the spine. No acute fracture. No dislocation. Soft tissues: Unremarkable. Vasculature: Unremarkable. No abdominal aortic aneurysm. Lymph nodes: Unremarkable. No enlarged lymph nodes. IMPRESSION: 1. Acute on chronic small bowel obstruction with a transition point in the left lower quadrant. 2. Small hiatal hernia.
--- NOTE | 2024-05-01 10:09 | Surgery Consultation ---
Date of Consultation May 01, 2024 Assessment & Plan (1) SBO (small bowel obstruction): likely functional ileus with immobility and mnarcotics IVF ambulate NG if vomiting GI plan to potentially do upper scope History of Present Illness Attending Physician: Carroll Ladd MD History of Present Illness This is a 63YO female who underwent a knee surgery who is in knee immobilizer and uses a walker admitted with nausea and vomiting and a CT scan with a possible SBO. She has also had some passage of dark stool over the last few days in addition to developing severe discomfort mid abdominal pain with hematemesis. She has been on NSAIDs. Currently no N/V maybe some flatus. Allergies Allergy/AdvReac Type Severity Reaction Status Date / Time sulfamethoxazole Allergy Intermediate Throat Verified 04/08/24 08:40 [From Bactrim] Swelling trimethoprim [From Bactrim] Allergy Intermediate Throat Verified 04/08/24 08:40 Swelling Home Medications Medication Instructions Recorded Confirmed Type scopolamine base 1 mg over 3 days 0 patch transdermal Q3D PRN nausea 02/10/24 04/30/24 History transdermal patch and vomiting meclizine 25 mg tablet 25 mg PO TID PRN Dizziness Or 02/12/24 04/08/24 History Vertigo cyanocobalamin (vitamin B-12) 1,000 mcg PO DAILY #30 caps 02/20/24 04/30/24 Rx 1,000 mcg capsule metformin 500 mg tablet,extended 500 mg PO BID 03/05/24 04/30/24 History release 24 hr levothyroxine 112 mcg tablet 112 mcg PO QAM 03/22/24 04/30/24 History pravastatin 10 mg tablet 10 mg PO QDL 03/22/24 04/30/24 History valacyclovir 500 mg tablet 500 mg PO DAILY PRN herpes #90 tabs 03/31/24 04/30/24 Rx Patient History Medical History Medial meniscus tear Right Hx of angioedema pt denies Hx of vertigo gets every few years Hyperlipidemia Pre-diabetes Hypothyroid History of vaginal delivery Surgical History History of colonoscopy 03/26/24 "with 2 polyps removed" Family History Mother Coronary heart disease, Onset Age: 56 Myocardial infarction Hypothyroidism ESCALONA (nonalcoholic steatohepatitis) Father Macular degeneration Hypothyroidism Circulation disorder of lower extremity Brother Depression Diabetes Sister Depression Hypothyroidism Daughter No problems noted. 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 How many Children do You have: 1 Other Information That Helps Us Care for You: No Feels Safe at Home: Yes Safety Concerns: Feels Safe At This Time Childhood Exposure to Second-Hand Smoke: No Diet: regular Diet Comment: vegetarian sometimes trying to get back to it caffeine: Yes during the past year weight has: remained stable Dental Care, Regularly: Yes Physical Activity Frequency: Daily Seatbelt Use: always Sunscreen Use: Yes Assistive Devices: Glasses and Walker Review of Systems Constitutional: no fever and no chills Eyes: no problem reported Ear, Nose, Mouth, Throat: no problem reported Respiratory: no cough and no dyspnea Cardiovascular: no chest pain Gastrointestinal: + change in bowel habits; no abdominal p ain, no nausea and no vomiting Genitourinary: no dysuria Musculoskeletal: + limited range of motion (knee immobili zer) Integumentary: no problem reported Neurologic: no localized weakness and no generalized weakness Psychiatric: no behavioral changes Physical Exam Constitutional: WD/WN, vitals as above Eyes: PERRL, conjunctivae normal, anicteric sclerae ENMT: external ear and nose normal, oropharynx normal Respiratory: normal respiratory effort, lungs clear to auscultation Cardiovascular: RRR, no murmur, no edema Gastrointestinal (Abdomen): Inspection/Auscultation: abdomen normal to inspection and normal bowel sounds; abdomen not distended and no abdominal surgical scar Percussion/Palpation: abdomen soft; abdomen nontender, no guarding and abdomen not rigid Musculoskeletal: Head/Neck/Chest: normocephalic and head atraumatic Skin: no rashes, warm and dry Results & Data Vital Signs (Past 12 Hours) Vital Signs Temp Pulse Resp BP BP Pulse Ox O2 Del Method 05/01/24 07:22 36.7 C 73 16 96/60 L 96 Room Air 04/30/24 23:44 36.4 C L 70 16 127/78 95 Room Air 04/30/24 22:16 Room Air Diagnostic Findings Exam(s): CT ABDOMEN + PELVIS With Contrast IV Amt: 92 ml opti 320 EXAM: CT Abdomen and Pelvis With Intravenous Contrast CLINICAL HISTORY: Abdominal Pain with nausea and vomiting. TECHNIQUE: Axial computed tomography images of the abdomen and pelvis with intravenous contrast. CTDI is 28.12 mGy and DLP is 1315.58 mGy-cm. Automated exposure control was utilized for the study. A dose lowering technique was utilized adhering to the principles of ALARA. CONTRAST: Patient received 92 ml opti 320 of IV contrast COMPARISON: Abdominal ultrasound 03/18/2024 FINDINGS: Lung bases: No consolidation. Mediastinum: Small hiatal hernia. ABDOMEN: Liver: Unremarkable. No mass. Gallbladder and bile ducts: Unremarkable. No calcified stones. No ductal dilation. Pancreas: Unremarkable. No mass. No ductal dilation. Spleen: Unremarkable. No splenomegaly. Adrenals: Unremarkable. No mass. Kidneys and ureters: Unremarkable. No solid mass. No hydronephrosis. Stomach and bowel: Acute on chronic small bowel obstruction with a transition point in the left lower quadrant. No mucosal thickening. PELVIS: Appendix: No findings to suggest acute appendicitis. Bladder: Unremarkable. No mass. Reproductive: Unremarkable as visualized. ABDOMEN and PELVIS: Intraperitoneal space: Unremarkable. No free air. No significant fluid collection. Bones/joints: There are degenerative changes of the spine. No acute fracture. No dislocation. Soft tissues: Unremarkable. Vasculature: Unremarkable. No abdominal aortic aneurysm. Lymph nodes: Unremarkable. No enlarged lymph nodes. IMPRESSION: 1. Acute on chronic small bowel obstruction with a transition point in the left lower quadrant. 2. Small hiatal hernia.
--- NOTE | 2024-05-01 11:31 | Anesthesiology Consultation ---
Date of Service May 01, 2024 Assessment & Plan Chart Review Chart Review: Acceptable Risk for Surgery and Patient NOT seen in Pre Admission Testing Consults Requested none History Surgery Operation Date: 05/01/24 14:00 Proposed Procedures p Esophagogastroduodenoscopy - Matthew Joe DO Height/Weight Height: 5 ft 6 in Weight: 101.9 kg Allergies Allergy/AdvReac Type Severity Reaction Status Date / Time sulfamethoxazole Allergy Intermediate Throat Verified 04/08/24 08:40 [From Bactrim] Swelling trimethoprim [From Bactrim] Allergy Intermediate Throat Verified 04/08/24 08:40 Swelling Medications Home Medications Medication Instructions Recorded Confirmed Last Taken scopolamine base 1 mg over 3 days 0 patch transdermal Q3D PRN nausea 02/10/24 04/30/24 Unknown transdermal patch and vomiting meclizine 25 mg tablet 25 mg PO TID PRN Dizziness Or 02/12/24 04/08/24 Unknown Vertigo cyanocobalamin (vitamin B-12) 1,000 mcg PO DAILY #30 caps 02/20/24 04/30/24 03/19/24 1,000 mcg capsule metformin 500 mg tablet,extended 500 mg PO BID 03/05/24 04/30/24 03/25/24 release 24 hr levothyroxine 112 mcg tablet 112 mcg PO QAM 03/22/24 04/30/24 04/07/24 pravastatin 10 mg tablet 10 mg PO QDL 03/22/24 04/30/24 03/24/24 valacyclovir 500 mg tablet 500 mg PO DAILY PRN herpes #90 tabs 03/31/24 04/30/24 Unknown Active Medications Generic Name Dose Route Start Last Admin Trade Name Freq PRN Reason Stop Dose Admin Pantoprazole Sodium 40 mg/ 100 mls @ 20 mls/hr 04/30/24 21:15 05/01/24 06:23 Dextrose IV 05/30/24 21:14 8 mg/hr Q5H ROSINA 20 mls/hr Administration 8 MG/HR Lactated Ringer's 1,000 mls @ 125 mls/hr 04/30/24 22:39 05/01/24 08:13 Lr IV 05/01/24 14:38 125 mls/hr .Q8H ROSINA Administration Past Medical History Medical History Medial meniscus tear Right Hx of angioedema pt denies Hx of vertigo gets every few years Hyperlipidemia Pre-diabetes Hypothyroid History of vaginal delivery Past Family History Family History Mother Coronary heart disease, Onset Age: 56 Myocardial infarction Hypothyroidism ESCALONA (nonalcoholic steatohepatitis) Father Macular degeneration Hypothyroidism Circulation disorder of lower extremity Brother Depression Diabetes Sister Depression Hypothyroidism Daughter No problems noted. Denies family history of Colon cancer Ovarian cancer Prostate cancer Breast cancer Past Surgical History Surgical History History of colonoscopy 03/26/24 "with 2 polyps removed" Social History Smoking Status: Never smoker tobacco type: cigarettes Do You Dip or Chew Tobacco: No Hx Alcohol Use: No alcohol intake frequency: holidays/special occasions only Hx Substance Use: No substance use type: does not use Physical Exam Vital Signs Last Vital Signs Temp 36.7 C 05/01/24 07:22 Pulse 73 05/01/24 07:22 Resp 16 05/01/24 07:22 BP 96/60 L 05/01/24 07:22 Pulse Ox 96 05/01/24 07:22 O2 Del Method Room Air 05/01/24 07:22 Testing Laboratory Results 05/01/24 06:30 05/01/24 06:30 PT 10.3 Seconds (9.0-12.0) 04/30/24 18:36 INR 0.9 (0.9-1.1) 04/30/24 18:36
--- NOTE | 2024-05-01 13:01 | Electrocardiogram Report ---
Test Reason : Blood Pressure : */* mmHG Vent. Rate : 78 BPM Atrial Rate : 78 BPM P-R Int : 136 ms QRS Dur : 82 ms QT Int : 386 ms P-R-T Axes : 60 -1 13 degrees QTcB Int : 440 ms Normal sinus rhythm Nonspecific ST abnormality Abnormal ECG When compared with ECG of 20-Feb-2024 22:48, No significant change was found Confirmed by Alfredo Mast ([id number]) on 05/01/2024 1:00:42 PM Referred By: Confirmed By: Alfredo Mast
[2024-05-01] MEDS ORDERED: PROPOFOL IV EMULSION 10 MG/ML 20 ML VIAL IV ONE (13:50)
[2024-05-01] MEDS ORDERED: SUCCINYLCHOLINE CHLORIDE 20 MG/ML 10 ML VIAL IV ONE (13:50)
--- NOTE | 2024-05-01 15:09 | Hospitalist Progress Note ---
Date of Service May 01, 2024 Assessment & Plan (1) SBO (small bowel obstruction): Plan: 63yo female with no prior abdominal surgery presenting with SBO with transition point note dint he left lower quadrant. Most likely narcotic induced ileus -Maintain NPO -Maintain aspiration precautions -Will hold off on NGT for now as patient with improved pain and nausea, no abdominal distention Continue IV fluids -Morphine as needed for pain - cautious use as patient reports developing constipation in the past with use of opiates -Zofran PRN nausea -General Surgery consultation appreciated (2) Hematemesis: Plan: Seems to be self limiting. No additional episodes of hematemesis Most likely due to [place] tear Patient has also been using NSAIDs. Patient requested GI consult. GI to do an EGD today -Protonix bolus and drip started in the ER -Continue Protonix drip for now -Repeat CBC in AM Plan Recent right meniscus repair - patient reports pain is well controlled -Maintain knee immobilizer -Non-weight bearing to RLE -Fall precautions -Holding ASA for now given report of hematemesis. SCDs to bilateral LE for DVT prophylaxis. If patient improved tomorrow would initiate DVT prophylaxis, consider Lovenox while inpatient. Consider discharge on ASA 81mg po BID rather than 325mg po BID for DVT prophylaxis if approved by Orthopedics Admission and Anticipated Discharge Date Admission Date: April 30, 2024 Subjective Patient seen and examined at 9:05 AM. She stated that she was feeling better overall. Pain was improved. She has not been vomiting since admission. But she is very concerned about vomiting blood prior to admission. Review of Systems Review of Systems: All systems reviewed & are unremarkable except as noted in Subjective Physical Exam Physical Exam: General: Awake, conversant Heart: S1, S2/regular rate and rhythm, no murmur rubs or gallops Lungs: Clear to auscultation bilaterally. Normal effort Abdomen: Soft/nontender/nondistended. No hepatosplenomegaly Extremities: No clubbing/cyanosis. No edema Behavior: Appropriate, cooperative Results & Data Results & Data Vital Signs (Past 12 Hours) Vital Signs Temp Pulse Resp BP Pulse Ox O2 Del Method 05/01/24 07:22 36.7 C 73 16 96/60 L 96 Room Air Laboratory Results Abnormal lab results 04/30/24 04/30/24 05/01/24 Range/Units 18:36 18:42 06:30 WBC 20.16 H (4.8-10.8) K/ul RBC 4.14 L (4.20-5.40) M/uL Hct 36.4 L (37.0-47.0) % Neut # (Auto) 17.37 H (1.40-6.50) K/uL [place] # (Auto) 0.81 H (0.11-0.59) K/uL POC Anion Gap 15.0 L (16-25) mmol/L POC BUN 21 H (7-18) mg/dl Glucose 154 H 112 H (70-99(Fasting)) mg/dl POC Glucose (other) 151 H (70-99) mg/dl Diagnostic Findings Abdomen/Pelvis CT 04/30/24 18:40 Exam(s): CT ABDOMEN + PELVIS With Contrast IV Amt: 92 ml opti 320 EXAM: CT Abdomen and Pelvis With Intravenous Contrast CLINICAL HISTORY: Abdominal Pain with nausea and vomiting. TECHNIQUE: Axial computed tomography images of the abdomen and pelvis with intravenous contrast. CTDI is 28.12 mGy and DLP is 1315.58 mGy-cm. Automated exposure control was utilized for the study. A dose lowering technique was utilized adhering to the principles of ALARA. CONTRAST: Patient received 92 ml opti 320 of IV contrast COMPARISON: Abdominal ultrasound 03/18/2024 FINDINGS: Lung bases: No consolidation. Mediastinum: Small hiatal hernia. ABDOMEN: Liver: Unremarkable. No mass. Gallbladder and bile ducts: Unremarkable. No calcified stones. No ductal dilation. Pancreas: Unremarkable. No mass. No ductal dilation. Spleen: Unremarkable. No splenomegaly. Adrenals: Unremarkable. No mass. Kidneys and ureters: Unremarkable. No solid mass. No hydronephrosis. Stomach and bowel: Acute on chronic small bowel obstruction with a transition point in the left lower quadrant. No mucosal thickening. PELVIS: Appendix: No findings to suggest acute appendicitis. Bladder: Unremarkable. No mass. Reproductive: Unremarkable as visualized. ABDOMEN and PELVIS: Intraperitoneal space: Unremarkable. No free air. No significant fluid collection. Bones/joints: There are degenerative changes of the spine. No acute fracture. No dislocation. Soft tissues: Unremarkable. Vasculature: Unremarkable. No abdominal aortic aneurysm. Lymph nodes: Unremarkable. No enlarged lymph nodes. IMPRESSION: 1. Acute on chronic small bowel obstruction with a transition point in the left lower quadrant. 2. Small hiatal hernia. Electronically signed by: Jessica Rocha MD 04/30/24 20:34 PM PG Care Time/CCT Total # of Minutes Spent Total Time Spent with Patient: Total time spent is greater than 50% in coordination of care (as documented) at patient's floor/unit and/or counseling patient: Coding Level of Care Code 56330 SUB INP/OBS CARE 2/35MIN Diagnoses SBO (small bowel obstruction) K56.609 Hematemesis K92.0
--- NOTE | 2024-05-01 16:19 | GI REPORT ---
[facility] Patient: LOVE DUNCAN : 1960 Sex at : Female Age: 63 Years Procedure: Upper GI endoscopy Date: 05/01/2024 Attending Physician: Matthew Joe DO Referring MD: Referred Self Indications: - Active gastrointestinal bleeding Medications: - General Anesthesia Complications: - No immediate complications. Estimated blood loss: None. Estimated Blood Loss: - Estimated blood loss: None. Procedure: - Prior to the procedure, a History and Physical was performed, and patient medications and allergies were reviewed. The patient is competent. The risks and benefits of the procedure and the sedation options and risks were discussed with the patient. All questions were answered and informed consent was obtained. Patient identification and proposed procedure were verified by the physician, the nurse and the conventional underwriter in the pre-procedure area in the procedure room. Mental Status Examination: alert and oriented. Airway Examination: normal oropharyngeal airway and neck mobility. Respiratory Examination: clear to auscultation. CV Examination: regular rate and rhythm. ASA Grade Assessment: II - A patient with mild systemic disease. After reviewing the risks and benefits, the patient was deemed in satisfactory condition to undergo the procedure. The anesthesia plan was to use general anesthesia. Immediately prior to administration of medications, the patient was re-assessed for adequacy to receive sedatives. The heart rate, respiratory rate, oxygen saturations, blood pressure, adequacy of pulmonary ventilation, and response to care were monitored throughout the procedure. The physical status of the patient was re-assessed after the procedure. - The egd scope was introduced through the mouth and advanced to the third part of the duodenum. - The upper GI endoscopy was accomplished without difficulty. - The patient tolerated the procedure well. Findings: - LA Grade C (one or more mucosal breaks continuous between tops of 2 or more mucosal folds, less than 75% circumference) esophagitis with no bleeding was found in the lower third of the esophagus. - Diffuse and patchy moderate inflammation characterized by congestion (edema) and erosions was found in the gastric body and in the gastric antrum. - The examined duodenum was normal. - The upper third of the esophagus was normal. - The middle third of the esophagus was normal. Impression: - LA Grade C reflux esophagitis with no bleeding. - Acute gastritis, characterized by congestion (edema) and erosions. - Normal examined duodenum. - Normal upper third of esophagus. - Normal middle third of esophagus. - No specimens collected. Recommendation: - The patient is not currently taking aspirin or NSAID medications. - Use Protonix (pantoprazole) 40 mg PO daily for 3 months. - Perform an upper GI endoscopy in 3 months. Procedure Code(s): - 70466, Esophagogastroduodenoscopy, flexible, transoral; diagnostic, including collection of specimen(s) by brushing or washing, when performed (separate procedure) Diagnosis Code(s): - K92.2, Gastrointestinal hemorrhage, unspecified - K21.00, Gastro-esophageal reflux disease with esophagitis, without bleeding - K29.00, Acute gastritis without bleeding CPT(R) - 2023 copyright [employer]. All Rights Reserved. The CPT codes, CCI edits and ICD codes generated are intended as suggestions and were generated based on input data. These codes are preliminary and upon inspector watch parts review may be revised to meet current compliance and payer requirements. The provider is responsible for the final determination of appropriate codes, and modifiers. Matthew Joe, DO This document has been electronically signed. Note Initiated:05/01/2024 Note Completed:05/01/2024 4:17 PM \\[id number]
[2024-05-01] MEDS ORDERED: ATROPINE SULFATE 0.1 MG/ML 10ML SYR IV PRN (16:26)
[2024-05-01] MEDS ORDERED: fentaNYL citrate PF 100 MCG/2 ML VIAL IV PRN (16:26)
[2024-05-01] MEDS ORDERED: ePHEDrine sulfate 50 MG/ML AMP IV PRN (16:26)
--- NOTE | 2024-05-01 16:33 | Post Operative Brief Note ---
Immediate Post Op Note Date of Surgery May 01, 2024 Pre & Post Diagnosis Operation Date: 05/01/24 14:00 Pre-Op Diagnosis: hematemesis Post-Op Diagnosis: Esophagitis/gastritis I identified the patient and participated in the time-out.: Yes Procedure Operation Date: 05/01/24 14:00 Actual Procedures p Esophagogastroduodenoscopy(Not Applicable) - Matthew Joe DO Surgeon Matthew Joe, Credit Manager none Estimated Blood Loss 0 Findings Consistent with Post-Op Diagnosis Grade C esophagitis Diffuse gastritis Complications none
--- NOTE | 2024-05-01 16:35 | Communication Note ---
Date of Service: May 01, 2024 The patient underwent upper endoscopy this afternoon for evaluation of hematemesis.Findings, esophagitis of the lower esophagus, diffuse gastritis, these are likely result of use of nonsteroidals. Recommendations, Protonix 40 mg 1 times daily for 3 months repeat upper endoscopy with [facility] in 3 months. Management of small bowel obstruction per general surgery service Please call with any additional questions or concerns GI to sign off
[2024-05-01] MEDS: ONDANSETRON INJ 2 MG/ML 2 ML VIAL IV PRN (17:00)
[2024-05-01] MEDS ORDERED: valACYclovir HCL 500 MG TABLET PO PRN (17:17)
[2024-05-01] MEDS ORDERED: SCOPOLAMINE 1 MG/72 HR TDSY PATCH TD PRN (17:17)
--- NOTE | 2024-05-01 17:20 | Anesthesiology Progress Note ---
Date of Service May 01, 2024 Anesthesia Post Procedure Vital Signs Vital Signs: Temp Pulse Pulse Resp BP BP BP 05/01/24 17:05 83 16 129/66 05/01/24 16:55 85 16 120/72 05/01/24 16:45 82 15 124/64 05/01/24 16:35 36.8 C 84 17 121/67 05/01/24 16:25 36.6 C 87 16 121/66 05/01/24 15:34 36.6 C 68 16 105/67 05/01/24 07:22 36.7 C 73 16 96/60 L 04/30/24 23:44 36.4 C L 70 16 127/78 04/30/24 22:16 04/30/24 22:00 64 15 122/69 04/30/24 21:31 75 16 134/88 04/30/24 18:41 85 04/30/24 18:40 04/30/24 18:22 76 16 04/30/24 18:22 36.4 C L 76 16 145/77 H Pulse Ox O2 Del Method 05/01/24 17:05 98 Room Air 05/01/24 16:55 97 Room Air 05/01/24 16:45 95 Room Air 05/01/24 16:35 94 Room Air 05/01/24 16:25 95 Room Air 05/01/24 15:34 96 Room Air 05/01/24 07:22 96 Room Air 04/30/24 23:44 95 Room Air 04/30/24 22:16 Room Air 04/30/24 22:00 98 04/30/24 21:31 96 04/30/24 18:41 04/30/24 18:40 93 Room Air 04/30/24 18:22 100 Room Air 04/30/24 18:22 100 Room Air Pain Intensity Abdomen: Pain Intensity: 3 Transfer of Care Handoff Completed per policy Notes Mental Status: alert / awake / arousable Patient Amnestic to Procedure: Yes Nausea / Vomiting: adequately controlled Pain: adequately controlled Airway Patency, RR, SpO2: stable & adequate BP & HR: stable & adequate Hydration State: stable & adequate Anesthetic Complications: no major complications apparent and Pt Satisfied with anesthetic care
[2024-05-01] MEDS: ONDANSETRON INJ 2 MG/ML 2 ML VIAL ONE (17:44)
[2024-05-01] MEDS: SODIUM CHLORIDE 0.9% 1,000 ML IV SCH (18:00)
[2024-05-01] MEDS: MELATONIN 3 MG TAB PO PRN (20:31)
[2024-05-01] MEDS: MoRPHine SULFATE 2 MG/ML CARP IV PRN (21:00)
[2024-05-01] MEDS ORDERED: metFORMIN HCL ER 500 MG TABCR PO SCH (21:00)
[2024-05-02 05:21] VITALS: RESP 16
[2024-05-02] MEDS: LEVOTHYROXINE SODIUM 112 MCG TABLET PO SCH (06:01)
[2024-05-02 07:38] VITALS: PULSE 74; TEMP 97.7; O2SAT 93
[2024-05-02] MEDS: PANTOprazole 40 MG TAB PO SCH (08:29)
[2024-05-02] MEDS: CYANOCOBALAMIN (B-12) 500 MCG TABLET PO SCH (08:29)
--- NOTE | 2024-05-02 10:27 | Surgery Progress Note ---
Date of Service May 02, 2024 Assessment & Plan (1) SBO (small bowel obstruction): Plan: resolved regular diet discharge per medical team Admission and Anticipated Discharge Date Admission Date: April 30, 2024 Subjective passing a lot of flatus no pain endoscopy results noted Review of Systems Constitutional: no fever and no chills Respiratory: no cough and no dyspnea Cardiovascular: no chest pain Gastrointestinal: no abdominal pain, no nausea, no vomiting and no change in bowel habits Genitourinary: no dysuria Neurologic: no localized weakness Psychiatric: no behavioral changes Results & Data Vital Signs (Past 12 Hours) Vital Signs Temp Pulse Resp BP Pulse Ox O2 Del Method 05/02/24 07:36 36.5 C 74 16 112/66 93 Room Air 05/02/24 03:50 36.7 C 64 16 103/62 94 Room Air 05/01/24 23:15 36.8 C 71 18 105/67 94 Room Air
[2024-05-02] MEDS: PRAVASTATIN SOD 10 MG TAB PO SCH (12:08)
[2024-05-02 13:27] VITALS: BP 105/60
--- NOTE | 2024-05-02 13:32 | Discharge Summary ---
Date of Service May 02, 2024 Admission HPI Per Admitting Provider Renée Thornton is a 63yo female with history of HLP, pre-DM and hypothyroidism presenting with abdominal pain, nausea and vomiting. Patient with no prior abdominal surgeries. She did have a colonoscopy on March 26, 2024 with two polyps removed from the splenic flexure and sigmoid colon. Patient ate a late lunch with her today around 14:00. During lunch she developed some mid-abdominal pain and feeling bloated and distended. She then developed nausea with multiple episodes of vomiting. states that she vomited every 10-15 minutes. She did have some hematemesis noted by her at one point. Ongoing nausea and abdominal pain. Patient had a right knee arthroscopy with medial meniscus root repair performed by Dr. Perkins on 04/08/24. She has been on ASA 325mg po BID for DVT prophylaxis since. She has a knee immobilizer in place and has been ambulating by hopping on her left leg and using a walker. She is to be [id number] to the E for 3 more weeks. She has been participating in PT - last note 04/26/24 Patient reports significant constipation that developed post-operatively where she did not have a BM for one week. She took Magnesium Citrate which ultimately resulted in a BM. Reports fairly normal BMs since. Admission Exam Per Admitting Provider General: patient resting comfortably, NAD, non-toxic in appearance, AA&O x 4 Skin: warm, dry, intact, no rashes or lesions HEENT: NC/AT, PERRL, EOMI, anicteric sclera, conjunctiva without injection, external ear normal to inspection and nontender, nares patent, moist mucus membranes, dentition intact, no oropharyngeal lesions, neck supple, trachea midline, no LAD, no thyromegaly, no JVD Heart: +S1/S2, regular, no m/r/g Lungs: equal air entry bilaterally, no rales/rhonchi/wheezes Abd: markedly diminished bowel sounds, soft, tenderness in lower abdomen without rebound/guarding/peritonitis, ND, no masses/organomegaly/ascites Ext: warm, 2+ pulses in UE/LE bilaterally, no clubbing/cyanosis or edema, RLE knee immobilizer in place Neuro: nonfocal, patient AA&O x 4, speech intact, no facial droop, moving all extremities on command with equal strength 5/5 Principal Diagnosis Bowel obstruction versus narcotic-induced functional ileus Hematemesis likely due to Mary-East tear versus gastritis/esophagitis from using NSAIDs Recent right meniscus repair Discharge Exam General: Awake, conversant Heart: S1, S2/regular rate and rhythm, no murmur rubs or gallops Lungs: Clear to auscultation bilaterally. Normal effort Abdomen: Soft/nontender/nondistended. No hepatosplenomegaly Extremities: No clubbing/cyanosis. No edema Behavior: Appropriate, cooperative Discharge Data Allergies Allergy/AdvReac Type Severity Reaction Status Date / Time sulfamethoxazole Allergy Intermediate Throat Verified 04/08/24 08:40 [From Bactrim] Swelling trimethoprim [From Bactrim] Allergy Intermediate Throat Verified 04/08/24 08:40 Swelling Consultations 04/30/24 20:53 ED Decision to Admit Stat 04/30/24 21:02 Consult General Surgery Routine 05/01/24 09:22 Consult Gastroenterology Routine Procedures Performed Operation Date: 05/01/24 14:00 Actual Procedures p Esophagogastroduodenoscopy(Not Applicable) - Matthew Joe DO Ordered Studies Abdomen/Pelvis CT 04/30/24 18:40 Exam(s): CT ABDOMEN + PELVIS With Contrast IV Amt: 92 ml opti 320 EXAM: CT Abdomen and Pelvis With Intravenous Contrast CLINICAL HISTORY: Abdominal Pain with nausea and vomiting. TECHNIQUE: Axial computed tomography images of the abdomen and pelvis with intravenous contrast. CTDI is 28.12 mGy and DLP is 1315.58 mGy-cm. Automated exposure control was utilized for the study. A dose lowering technique was utilized adhering to the principles of ALARA. CONTRAST: Patient received 92 ml opti 320 of IV contrast COMPARISON: Abdominal ultrasound 03/18/2024 FINDINGS: Lung bases: No consolidation. Mediastinum: Small hiatal hernia. ABDOMEN: Liver: Unremarkable. No mass. Gallbladder and bile ducts: Unremarkable. No calcified stones. No ductal dilation. Pancreas: Unremarkable. No mass. No ductal dilation. Spleen: Unremarkable. No splenomegaly. Adrenals: Unremarkable. No mass. Kidneys and ureters: Unremarkable. No solid mass. No hydronephrosis. Stomach and bowel: Acute on chronic small bowel obstruction with a transition point in the left lower quadrant. No mucosal thickening. PELVIS: Appendix: No findings to suggest acute appendicitis. Bladder: Unremarkable. No mass. Reproductive: Unremarkable as visualized. ABDOMEN and PELVIS: Intraperitoneal space: Unremarkable. No free air. No significant fluid collection. Bones/joints: There are degenerative changes of the spine. No acute fracture. No dislocation. Soft tissues: Unremarkable. Vasculature: Unremarkable. No abdominal aortic aneurysm. Lymph nodes: Unremarkable. No enlarged lymph nodes. IMPRESSION: 1. Acute on chronic small bowel obstruction with a transition point in the left lower quadrant. 2. Small hiatal hernia. Electronically signed by: Jessica Rocha MD 04/30/24 20:34 PM 04/30/24 18:40 CT abd pelvis IV con only Stat Hospital Course (1) SBO (small bowel obstruction): 63yo female with no prior abdominal surgery presenting with SBO with transition point note dint he left lower quadrant. Most likely narcotic induced ileus -Advanced diet, now tolerating solids - Will dc -Advised to avoid narcotics (2) Hematemesis: Seems to be self limiting. No additional episodes of hematemesis Most likely due to combination of Mary-East tear and esophagitis/gastritis from NSAIDS/Aspirin Patient has also been using NSAIDs. EGD showed esophagitis/gastritis -GI recommended PO PPI, repeat EGD in 3 months -Avoid NSAID-s -Patient should talk to ortho about stopping or reducing the dose of ASA for DVT PPx - no more GI bleed Plan Recent right meniscus repair - patient reports pain is well controlled -Maintain knee immobilizer -Non-weight bearing to RLE -Fall precautions -Holding ASA for now given report of hematemesis. Pt to talk to ortho about resuming a smaller dose of ASA 81mg po BID rather than 325mg po BID for DVT prophylaxis or discontinuing completely DC to home today Total Time Total Time Spent Total Time Spent (In Minutes): 35 Discharge Plan Discharge Items Patient Disposition: Home - Self-Care Reason For Visit: SMALL BOWEL OBSTRUCTION Discharge Diagnosis: Bowel obstruction versus narcotic-induced functional ileus Hematemesis likely due to Mary-East tear versus gastritis/esophagitis from using NSAIDs Recent right meniscus repair Activity: Resume your previous activity Non-emergency contact: Primary Care Provider Call non-emergency contact if: you have any medication questions and your symptoms worsen Follow-up/Referrals: Anastasia Ye MD [Primary Care Provider] - Diet: Heart Healthy Addtl Attending Provider Instructions: Advised to follow-up with PCP in 1 week Advised to note that you are being discharged on a proton pump inhibitor to protect your stomach from the acids Advised to note that you will need a repeat EGD in 3 months. You will will need a GI follow-up arranged by your PCP with [facility] gastroenterology Advised to limit narcotic use Advised to avoid all nonsteroidal brag-aqp-gqkhccn pain medications like Aleve, Advil, Motrin, Naprosyn, naproxen, ibuprofen Advised to hold aspirin until evaluated by orthopedics. Advised to talk to orthopedics about stopping aspirin for DVT prophylaxis or lowering to a smaller dose of 81 mg twice daily Pending Studies at Discharge: No Stand-Alone Forms: My [facility] [employer] Medications and DC Order Prescriptions: New pantoprazole 40 mg Tablet,Delayed Release (Dr/Ec) 40 mg PO QAM 30 Days Qty: 30 0RF Continued cyanocobalamin (vitamin B-12) 1,000 mcg capsule 1,000 mcg PO DAILY Qty: 30 2RF valacyclovir 500 mg tablet 500 mg PO DAILY PRN (Reason: herpes) Qty: 90 1RF metformin 500 mg tablet extended release 24 hr 500 mg PO BID Patient Comments: Patient states some days she takes twice a day, some days daily. Ordered Daily Rx Instructions: off right now due to GI side effects pravastatin 10 mg tablet 10 mg PO QDL levothyroxine 112 mcg tablet 112 mcg PO QAM Rx Instructions: Take 1st thing in AM on empty stomach with water 30 min prior to any other oral intake. scopolamine base 1 mg over 3 days patch 3 day 0 patch transdermal Q3D PRN (Reason: nausea and vomiting) Rx Instructions: Unable to verify w/ patient/pharmacy at this date/time. Original Directions: 1 patch transdermal q3D PRN meclizine 25 mg tablet 25 mg PO TID PRN (Reason: Dizziness Or Vertigo) Discharge Orders: Discharge Order (Routine); Ordered 05/02/24 Ordered By: Carroll Ladd Admission Data Admit Date/Time: 04/30/24 21:02 Attending Provider: Carroll Ladd Admit Provider: Grace Noble Primary Care Provider: Anastasia Ye Other Providers: Grace Noble; Michael Yang; Matthew Joe
== END 2024-05-02 17:52 | disposition home or self-care (01) | DRG 368 ==
LOC: ED 18:22 → SUATTDRO 21:02 → 3W 21:02